=== PATIENT | female | born 1970 | race Caucasian/White ===

== ENCOUNTER → 2017-04-14 | Outpatient (CLI) | payer MEDICAID ==
--- NOTE | 2017-04-19 09:35 | MM ---
Reason for exam: screening (asymptomatic). Last mammogram was performed 4 years and 11 months ago. History: Patient had first child at age 43. Taking hormonal contraceptives for 3 years. Physical Findings: A clinical breast exam by your physician is recommended on an annual basis and results should be correlated with mammographic findings. MG 3D Screening Mammo W/Cad Bilateral CC, MLO, and XCCL view(s) were taken. Prior study comparison: May 16, 2012, mammogram, performed at [facility]. April 10, 2009, mammogram, performed at [facility]. There are scattered fibroglandular densities. There is no discrete abnormality. No significant changes when compared with prior studies. ASSESSMENT: Negative, BI-RAD 1 RECOMMENDATION: Routine screening mammogram of both breasts in 1 year.
== END | disposition home or self-care (01) ==
LOC: RADMAMWWP 11:00
PROVIDERS: ATTEND Obstetrics & Gynecology
DX: Z12.31 Encounter for screening mammogram for malignant neoplasm of breast (principal)
CPT/HCPCS: 77063; G0202

== ENCOUNTER → 2018-07-19 | Outpatient (CLI) | payer MEDICAID ==
--- NOTE | 2018-07-24 11:58 | MM ---
Reason for exam: screening (asymptomatic). Last mammogram was performed 1 year and 3 months ago. History: Patient had first child at age 43. Taking hormonal contraceptives for 3 years. Physical Findings: A clinical breast exam by your physician is recommended on an annual basis and results should be correlated with mammographic findings. MG 3D Screening Mammo W/Cad Bilateral CC and MLO view(s) were taken. Prior study comparison: April 14, 2017, bilateral MG 3d screening mammo w/cad. May 16, 2012, mammogram, performed at [facility]. There are scattered fibroglandular densities. No significant changes when compared with prior studies. ASSESSMENT: Benign, BI-RAD 2 RECOMMENDATION: Routine screening mammogram of both breasts in 1 year.
== END | disposition home or self-care (01) ==
LOC: RADMAMWWP 11:11
PROVIDERS: ATTEND Obstetrics & Gynecology
DX: Z12.31 Encounter for screening mammogram for malignant neoplasm of breast (principal)
CPT/HCPCS: 77063; 77067

== ENCOUNTER → 2018-08-14 | Outpatient (CLI) | payer MEDICAID ==
--- NOTE | 2018-08-14 09:39 | CT ---
EXAMINATION TYPE: CT sinus wo con DATE OF EXAM: 08/14/2018 COMPARISON: NONE HISTORY: Chronic hypertrophic rhinitis per order. Sinus symptoms per every including headaches and ch panfilo in vision per patient. CT DLP: 641.6 mGycm. Automated Exposure Control for Dose Reduction was Utilized. TECHNIQUE: CT scan of the sinuses is performed without contrast, axial images are obtained, coronal r eformatted images are also reviewed. FINDINGS: The paranasal sinuses including the frontal, ethmoid, sphenoid, and maxillary sinuses bila terally are well-aerated without abnormal opacification. The ostiomeatal complex is patent bilateral ly on the coronal images. Nasal septum is slightly deviated to right of midline. Visualized portion of mastoid air cells show no abnormal opacification. The globes are intact bilate rally. IMPRESSION: No significant acute or chronic paranasal sinus disease.
== END | disposition home or self-care (01) ==
LOC: RADCTMAIN 07:21
PROVIDERS: ATTEND Otolaryngology Sleep Medicine
DX: J31.0 Chronic rhinitis (principal)
CPT/HCPCS: 70486

== ENCOUNTER → 2019-06-06 | Outpatient (CLI) | payer MEDICAID ==
[2019-06-06 11:39] VITALS: BMI 47.5
== END | disposition home or self-care (01) ==
LOC: DBWHC3 10:02
PROVIDERS: ATTEND Family Medicine
DX: E66.9 Obesity, unspecified (principal); Z68.42 Body mass index [BMI] 45.0-49.9, adult
CPT/HCPCS: 97802

== ENCOUNTER 2020-04-03 12:28 | Observation (INO) | payer MEDICAID ==
--- NOTE | 2020-04-03 13:10 | ED ---
General Adult HPI - General Chief complaint: Chest Pain Stated complaint: Chest pressure Time Seen by Provider: 04/03/20 12:44 Source: patient, RN notes reviewed, old records reviewed Mode of arrival: wheelchair Limitations: no limitations - History of Present Illness Initial comments: 50-year-old female presenting for evaluation of chest pressure, tightness, and dyspnea. Symptoms have been present since yesterday evening. She states initially began as what she thought was indigestion, central burning chest pain. This progressed to a chest tightness. She states that it has not resolved. She denies associated vomiting or diaphoresis. She has no known history of coronary artery disease. She is a nonsmoker. Past medical history of anxiety a nd depression, no history of diabetes or hypertension. - Related Data Allergies Allergy/AdvReac Type Severity Reaction Status Date / Time No Known Allergies Allergy Verified 04/03/20 12:42 Review of Systems ROS Statement: Those systems with pertinent positive or pertinent negative responses have been documented in the HPI. ROS Other: All systems not noted in ROS Statement are negative. Past Medical History Past Medical History: No Reported History History of Any Multi-Drug Resistant Organisms: None Reported Past Surgical History: No Surgical Hx Reported Past Psychological History: Anxiety Smoking Status: Never smoker Past Alcohol Use History: None Reported Past Drug Use History: None Reported General Exam Limitations: no limitations General appearance: alert, in no apparent distress Head exam: Present: atraumatic, normocephalic Eye exam: Present: normal appearance, PERRL ENT exam: Present: normal exam Neck exam: Present: normal inspection. Absent: tenderness, meningismus Respiratory exam: Present: normal lung sounds bilaterally. Absent: respiratory distress, wheezes, rales Cardiovascular Exam: Present: regular rate, normal rhythm GI/Abdominal exam: Present: soft. Absent: distended, tenderness Extremities exam: Present: normal inspection, normal capillary refill. Absent: pedal edema, calf tenderness Neurological exam: Present: alert, oriented X3, CN II-XII intact. Absent: motor sensory deficit Psychiatric exam: Present: anxious Skin exam: Present: warm, dry, intact. Absent: cyanosis, diaphoretic Course Vital Signs 04/03/20 04/03/20 04/03/20 12:39 12:55 13:36 Temperature 98.2 F 98 F Pulse Rate 99 101 H Respiratory 20 18 18 Rate Blood Pressure 140/80 138/62 O2 Sat by Pulse 100 99 Oximetry EKG Findings - EKG Comments: EKG Findings:: EKG: Normal sinus rhythm, incomplete right bundle-branch block no ST segment elevation, rate of 96, NJ interval 148, QRS duration 110, QTC 469 Medical Decision Making - Medical Decision Making 50-year-old female presenting with chest pain. Patient has EKG which is sinus rhythm with no ST segment elevation, chest x-ray negative for focal pneumonia, no acute findings. Patient has a normal CBC, normal CMP, initial troponin is negative, d-dimer is negative. Patient will be kept in observation for serial cardiac enzymes, telemetry and cardiology consultation - Lab Data Result diagrams: 04/03/20 13:12 04/03/20 13:12 Lab Results 04/03/20 04/03/20 04/03/20 Range/Units 13:12 13:12 13:12 WBC 7.2 (3.8-10.6) k/uL RBC 5.10 (3.80-5.40) m/uL Hgb 14.1 (11.4-16.0) gm/dL Hct 43.4 (34.0-46.0) % MCV 85.1 (80.0-100.0) fL MCH 27.5 (25.0-35.0) pg MCHC 32.4 (31.0-37.0) g/dL RDW 12.9 (11.5-15.5) % Plt Count 327 (150-450) k/uL Neutrophils % 59 % Lymphocytes % 31 % Monocytes % 6 % Eosinophils % 2 % Basophils % 1 % Neutrophils # 4.2 (1.3-7.7) k/uL Lymphocytes # 2.2 (1.0-4.8) k/uL Monocytes # 0.4 (0-1.0) k/uL Eosinophils # 0.2 (0-0.7) k/uL Basophils # 0.0 (0-0.2) k/uL PT 9.7 (9.0-12.0) sec INR 0.9 (<1.2) APTT 25.2 (22.0-30.0) sec D-Dimer 0.27 (<0.60) mg/L FEU Sodium 139 (137-145) mmol/L Potassium 4.1 (3.5-5.1) mmol/L Chloride 105 (98-107) mmol/L Carbon Dioxide 25 (22-30) mmol/L Anion Gap 9 mmol/L BUN 12 (7-17) mg/dL Creatinine 0.66 (0.52-1.04) mg/dL Est GFR (CKD-EPI)AfAm >90 (>60 ml/min/1.73 sqM) Est GFR (CKD-EPI)NonAf >90 (>60 ml/min/1.73 sqM) Glucose 102 H (74-99) mg/dL Calcium 10.2 (8.4-10.2) mg/dL Magnesium 2.0 (1.6-2.3) mg/dL Total Bilirubin 0.4 (0.2-1.3) mg/dL AST 25 (14-36) U/L ALT 22 (4-34) U/L Alkaline Phosphatase 71 (38-126) U/L Troponin I (0.000-0.034) ng/mL NT-Pro-B Natriuret Pep pg/mL Total Protein 7.4 (6.3-8.2) g/dL Albumin 4.6 (3.5-5.0) g/dL 04/03/20 04/03/20 Range/Units 13:12 13:12 WBC (3.8-10.6) k/uL RBC (3.80-5.40) m/uL Hgb (11.4-16.0) gm/dL Hct (34.0-46.0) % MCV (80.0-100.0) fL MCH (25.0-35.0) pg MCHC (31.0-37.0) g/dL RDW (11.5-15.5) % Plt Count (150-450) k/uL Neutrophils % % Lymphocytes % % Monocytes % % Eosinophils % % Basophils % % Neutrophils # (1.3-7.7) k/uL Lymphocytes # (1.0-4.8) k/uL Monocytes # (0-1.0) k/uL Eosinophils # (0-0.7) k/uL Basophils # (0-0.2) k/uL PT (9.0-12.0) sec INR (<1.2) APTT (22.0-30.0) sec D-Dimer (<0.60) mg/L FEU Sodium (137-145) mmol/L Potassium (3.5-5.1) mmol/L Chloride (98-107) mmol/L Carbon Dioxide (22-30) mmol/L Anion Gap mmol/L BUN (7-17) mg/dL Creatinine (0.52-1.04) mg/dL Est GFR (CKD-EPI)AfAm (>60 ml/min/1.73 sqM) Est GFR (CKD-EPI)NonAf (>60 ml/min/1.73 sqM) Glucose (74-99) mg/dL Calcium (8.4-10.2) mg/dL Magnesium (1.6-2.3) mg/dL Total Bilirubin (0.2-1.3) mg/dL AST (14-36) U/L ALT (4-34) U/L Alkaline Phosphatase (38-126) U/L Troponin I <0.012 (0.000-0.034) ng/mL NT-Pro-B Natriuret Pep 17 pg/mL Total Protein (6.3-8.2) g/dL Albumin (3.5-5.0) g/dL Disposition Clinical Impression: Chest pain Disposition: ADMITTED IP TO THIS [facility] Condition: Stable Is patient prescribed a controlled substance at d/c from ED?: No Referrals: Charles Patterson DO [Primary Care Provider] - 1-2 days Decision to Admit Reason: Admit from EC Decision Date: 04/03/20 Decision Time: 14:18
--- NOTE | 2020-04-03 13:25 | XR ---
EXAMINATION TYPE: XR chest 2V DATE OF EXAM: 04/03/2020 COMPARISON: None TECHNIQUE: PA and lateral views submitted. HISTORY: Chest pain FINDINGS: The lungs are clear and there is no pneumothorax, pleural effusion, or focal pneumonia. Heart size normal. No overt failure. Biapical pleural thickening. Mild hypertrophic change of the spine. IMPRESSION: 1. No acute process.
[2020-04-03 13:28] LABS: Basophils % (A) 1 %; Eosinophils # (A) 0.2 k/uL (0-0.7); Eosinophils % (A) 2 %; HCT 43.4 % (34.0-46.0); HGB 14.1 gm/dL (11.4-16.0); Lymphocytes # (A) 2.2 k/uL (1.0-4.8); Lymphocytes % (A) 31 %; MCH 27.5 pg (25.0-35.0); MCHC 32.4 g/dL (31.0-37.0); MCV 85.1 fL (80.0-100.0); Mean Platelet Volume 7.1; Monocytes # (A) 0.4 k/uL (0-1.0); Monocytes % (A) 6 %; Neutrophils # (A) 4.2 k/uL (1.3-7.7); Neutrophils % (A) 59 %; Platelet Count 327 k/uL (150-450); RDW 12.9 % (11.5-15.5); WBC 7.2 k/uL (3.8-10.6)
[2020-04-03 13:32] LABS: ALT 22 U/L (4-34); AST 25 U/L (14-36); African American GFR (CKD) >90 (>60 ml/min/1.73 sqM); Albumin 4.6 g/dL (3.5-5.0); Alkaline Phosphatase 71 U/L (38-126); Anion Gap 9 mmol/L; Blood Urea Nitrogen 12 mg/dL (7-17); Calcium 10.2 mg/dL (8.4-10.2); Carbon Dioxide 25 mmol/L (22-30); Chloride 105 mmol/L (98-107); Glucose 102 mg/dL (74-99); Non-African American GFR(CKD) >90 (>60 ml/min/1.73 sqM); Potassium 4.1 mmol/L (3.5-5.1); Sodium 139 mmol/L (137-145); Total Bilirubin 0.4 mg/dL (0.2-1.3); Total Protein 7.4 g/dL (6.3-8.2)
[2020-04-03 13:42] LABS: D-Dimer 0.27 mg/L FEU (<0.60); INR 0.9 (<1.2); Partial Thromboplastin Time 25.2 sec (22.0-30.0); Prothrombin Time 9.7 sec (9.0-12.0)
[2020-04-03] MEDS ORDERED: ASPIRIN 325 MG TAB PO STA (13:59)
[2020-04-03] MEDS ORDERED: ACETAMINOPHEN TAB 325 MG TAB PO PRN (14:15)
[2020-04-03] MEDS ORDERED: NALOXONE 0.4 MG/ML 1 ML VIAL IV PRN (14:15)
[2020-04-03] MEDS ORDERED: HYDROmorphone 0.5 MG/0.5 ML SYRINGE IVP PRN (17:09)
[2020-04-03] MEDS ORDERED: TEMAZEPAM 15 MG CAP PO PRN (17:09)
[2020-04-03] MEDS ORDERED: clonazePAM 1 MG TAB PO PRN (17:15)
--- NOTE | 2020-04-03 17:47 | HP ---
HISTORY AND PHYSICAL DATE OF SERVICE: 04/03/2020 CHIEF COMPLAINT: Chest pain. HISTORY OF PRESENT ILLNESS: This is a 50-year-old woman with a past medical history of hypercholesteremia, history of distention, diabetes, history of sinus surgery, history of anxiety, depression, being followed by Dr. Charles Patterson in the outpatient setting, was yesterday last night, woke up from the sleep with initially some indigestion, subsequently some burning chest pain which was high up in the chest. The patient also had some chest tightness, which was not resolved and the patient came to [facility], admitted for further evaluation and treatment. There is no history of fever, chills, or rigors. No history of headache, loss of consciousness or seizures. PAST MEDICAL HISTORY: History of anxiety, depression, history of hypertriglyceridemia, history of chronic rhinitis, bilateral glaucoma. HOME MEDICATIONS: Prior to admission include: 1. Tylenol 500 mg q.6 p.r.n. 2. PreserVision. 3. Magnesium oxide 500 mg p.o. daily. 4. Vitamin D3 one thousand daily. 5. Vistaril 25 mg q.h.s. 6. Klonopin 1 mg daily p.r.n. 7. Effexor XR 75 mg q.h.s. 8. Elavil 12.5 mg q.h.s. 9. Abilify 5 mg. ALLERGIES: LATEX. FAMILY HISTORY: No history of heart disease or strokes in the family. SOCIAL HISTORY: No history of smoking, no alcohol intake. REVIEW OF SYSTEMS: ENT: No diminished vision. CARDIOVASCULAR: As mentioned earlier. RESPIRATORY: As mentioned earlier. GI: As mentioned earlier. : No dysuria. NERVOUS SYSTEM: No numbness or weakness. ALLERGY/IMMUNOLOGY: As mentioned earlier. MUSCULOSKELETAL: As mentioned earlier. HEMATOLOGY/ONCOLOGY: No history of anemia. ENDOCRINE: No history of diabetes or hypothyroidism. CONSTITUTIONAL: As mentioned earlier. DERMATOLOGY: Negative. PSYCHIATRY: As mentioned earlier. PHYSICAL EXAMINATION: Patient is alert, oriented x3. The pulse is 103, blood pressure 139/81, respirations 16, temperature 98.1, pulse ox 98% on room air. HEENT: Conjunctivae normal. NECK: No jugular venous distension. CARDIOVASCULAR SYSTEM: S1, S2, muffled. RESPIRATORY: Breath sounds diminished at the bases, no rhonchi, no crackles. ABDOMEN: Soft, obese, nontender. No mass palpable. LEGS: No edema, no swelling. NERVOUS SYSTEM: Higher functions as mentioned earlier. moves all 4 limbs, no focal motor or sensory deficits. LYMPHATICS: No lymph node enlargement in the neck or axillae. SKIN: No ulcer, rash. JOINTS: No active arthropathy. LABS: CBC within normal limits, glucose 102. ASSESSMENT: 1. Chest pain, possible unstable angina. Rule out myocardial infarction. 2. Possible gastroesophageal reflux disease. 3. History of mild hypertriglyceridemia. 4. History of chronic rhinitis. 5. History of bilateral glaucoma. 6. History of degenerative joint disease. 7. History of gestational diabetes. 8. Anxiety, depression. 9. Obesity with body mass index of 40.5. RECOMMENDATION: In this 50-year-old woman who presented with multiple medical problems, at this time, I recommend to continue current medications and symptomatic treatment. protocol. Rule out myocardial infarction. Cardiology consultation. N.p.o. past midnight. Possible stress test. Otherwise, I would also recommend resume the home medications, Klonopin p.r.n. Will follow the patient closely and a copy of this forwarded to Dr. Patterson who is the primary physician. MMODL / IJN: [id number] / MTDD
[2020-04-03 18:33] LABS: Appearance,Urine Clear (Clear); Bilirubin,Urine Negative (Negative); Blood,Urine Negative (Negative); Color,Urine Light Yellow; Glucose,Urine (UA) Negative (Negative); Ketones,Urine Negative (Negative); Leukocyte Esterase,Urine Negative (Negative); Nitrite,Urine Negative (Negative); PH, Urine 6.5 (5.0-8.0); Protein,Urine Negative (Negative); Specific Gravity,Urine 1.009 (1.001-1.035); Urobilinogen,Urine <2.0 mg/dL (<2.0)
[2020-04-03] MEDS: PANTOPRAZOLE 40 MG/10 ML VIAL IVP SCH ×2 (19:14→21:06)
[2020-04-03] MEDS: hydrOXYzine pamoate 25 MG CAP PO SCH (20:22)
[2020-04-03] MEDS: AMITRIPTYLINE HCL 25 MG TAB PO SCH (21:05)
[2020-04-03] MEDS: ARIPiprazole 5 MG TAB PO SCH (21:06)
[2020-04-03] MEDS: VENLAFAXINE HCL ER 75 MG CAP PO SCH (21:28)
[2020-04-04 06:52] LABS: Basophils # (A) 0.1 k/uL (0-0.2); Basophils % (A) 1 %; Eosinophils # (A) 0.2 k/uL (0-0.7); Eosinophils % (A) 3 %; HCT 43.1 % (34.0-46.0); HGB 13.8 gm/dL (11.4-16.0); Lymphocytes # (A) 2.3 k/uL (1.0-4.8); Lymphocytes % (A) 29 %; MCH 27.7 pg (25.0-35.0); MCV 86.5 fL (80.0-100.0); Mean Platelet Volume 7.1; Monocytes # (A) 0.5 k/uL (0-1.0); Monocytes % (A) 7 %; Neutrophils # (A) 4.7 k/uL (1.3-7.7); Neutrophils % (A) 59 %; Platelet Count 319 k/uL (150-450); RBC 4.98 m/uL (3.80-5.40); RDW 13.1 % (11.5-15.5)
[2020-04-04 07:02] LABS: African American GFR (CKD) >90 (>60 ml/min/1.73 sqM); Anion Gap 8 mmol/L; Blood Urea Nitrogen 13 mg/dL (7-17); Calcium 9.7 mg/dL (8.4-10.2); Carbon Dioxide 26 mmol/L (22-30); Chloride 104 mmol/L (98-107); Glucose 116 mg/dL (74-99); Non-African American GFR(CKD) >90 (>60 ml/min/1.73 sqM); Potassium 4.3 mmol/L (3.5-5.1); Sodium 138 mmol/L (137-145)
[2020-04-04] MEDS: PANTOPRAZOLE 40 MG/10 ML VIAL IVP SCH ×2 (08:41→19:47)
[2020-04-04] MEDS: CHOLECALCIFEROL 1,000 UNIT TAB PO SCH (08:41)
[2020-04-04] MEDS: VIT A,C & E-LUTEIN-MINERALS 1 EACH TAB PO SCH (08:42)
[2020-04-04] MEDS: MAGNESIUM OXIDE 400 MG TAB PO SCH (08:42)
--- NOTE | 2020-04-04 09:00 | US ---
EXAMINATION TYPE: US gallbladder DATE OF EXAM: 04/04/2020 COMPARISON: CT 2008 CLINICAL HISTORY: epigastric pain, right arm, nausea. RUQ pain, esophageal reflux per patient EXAM MEASUREMENTS: Liver Length: 20.0 cm Gallbladder Wall: 0.2 cm CBD: 0.6 cm Right Kidney: 13.3 x 6.1 x 4.1 cm Pancreas: hyperechoic and tail obscured by overlying bowel gas Liver: enlarged, fatty as is hyperechoic to right renal cortex Gallbladder: multiple, nonmobile and shadowing stones within Evidence for sonographic Clark's sign: yes CBD: size is within upper limits of normal Right Kidney: No hydronephrosis or masses seen Pancreas is suboptimally evaluated on images saved secondary to shadowing from overlying bowel gas. V isualized liver is heterogeneously hyperechoic with portions not well seen on images labeled secondar y to shadowing from ribs. Evaluation for focal masses suboptimal due to the heterogeneity. Gallbladde r shows multiple mobile shadowing gallstones. No pericholecystic fluid or abnormal gallbladder wall t hickening. Positive sonographic Clark's sign. Common bile duct measures upper limits of normal. IMPRESSION: Suboptimal study. Several intraluminal gallstones redemonstrated. No convincing significa nt or ultrasound evidence for acute cholecystitis. However in patient with right upper quadrant pain and positive sonographic Clark's sign it cannot be entirely excluded. Consider HIDA scan evaluation.
[2020-04-04 10:02] LABS: Cholesterol 204 mg/dL (<200); HDL Cholesterol 49 mg/dL (40-60); LDL Cholesterol,Calculated 109 mg/dL (0-99); Triglycerides 232 mg/dL (<150)
--- NOTE | 2020-04-04 10:25 | P.CRDCN ---
History of Present Illness History of present illness: HISTORY OF PRESENTING ILLNESS This is a pleasant 50-year-old male past medical history significant for anxiety and depression. 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 We have been asked to see in consultation for chest pain. She woke up in the middle of the night with a pain in the mid sternal region described as a burning sensation associated with nausea, a weird taste in her mouth and a full sensation in her chest. She took an antacid and her symptoms did not improve. She woke up again later in the night with similar symptoms and this time she felt very nauseated. She states she felt as though she was going to vomit if she felt. Her symptoms of chest pain and nausea have subsided. However she does have mild discomfort in the right upper quadrant DIAGNOSTICS EKG reveals sinus mechanism with right bundle branch block. Chest xray a for any acute cardiopulmonary process. Laboratory reviewed, BC unremarkable, d-dimer 0.27, sodium 138, potassium 4.3, creatinine 0.61, uric enzymes negative 3, and T proBNP 17, LDL 109, HDL 49, triglycerides 232 and total cholesterol 204. REVIEW OF SYSTEMS At the time of my exam: CONSTITUTIONAL: Denies fever or chills. CARDIOVASCULAR: Denies chest pain, shortness of breath, orthopnea, PND or palpitations. RESPIRATORY: Denies cough. GASTROINTESTINAL: Denies abdominal pain, diarrhea, constipation, nausea or vomiting. MUSCULOSKELETAL: Denies myalgias. NEUROLOGIC: Denies numbness, tingling or weakness. ENDOCRINE: Denies fatigue, weight change, polydipsia or polyurina. GENITOURINARY: Denies burning, hematuria or urgency with micturation. HEMATOLOGIC: Denies history of anemia or bleeding. PHYSICAL EXAMINATION Blood pressure 135/84 heart rate 67 afebrile and maintaining oxygen saturation on air. CONSTITUTIONAL: No apparent distress. Obese. HEENT: Head is normocephalic. Pupils are equal, round. Sclerae anicteric. Mucous membranes of the mouth are moist. No JVD. No carotid bruit. CHEST EXAMINATION: Lungs are clear to auscultation. No chest wall tenderness is noted on palpation or with deep breathing. HEART EXAMINATION: Regular rate and rhythm. S1, S2 heard. No murmurs, gallops or rub. ABDOMEN: Soft, mild discomfort of the right upper quadrant not acutely tender. Positive bowel sounds. EXTREMITIES: 2+ peripheral pulses, no lower extremity edema and no calf tenderness. NEUROLOGIC EXAMINATION: Patient is awake, alert and oriented x3. ASSESSMENT Chest pain, atypical for angina. Morbid obesity, BMI 48 PLAN An acute coronary event has been ruled out. Symptoms are atypical for angina and appear to have more of a GI etiology. We have requested an ultrasound of the gallbladder reveals multiple gallstones with no acute cholecystitis. Given her ongoing mild abdominal discomfort and seek surgical evaluation and recommend stress testing as an outpatient. Check lipid panel and hemoglobin A1c. Follow- up in the office with Dr. Virgen in 3 weeks. Thank you kindly for this consultation. Nurse Practitioner note has been reviewed, I agree with a documented findings and plan of care. Patient was seen and examined. 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 History of Any Multi-Drug Resistant Organisms: None Reported Past Surgical History: No Surgical Hx Reported Additional Past Surgical History / Comment(s): Sinus surgery, D&Cs d/t polyps, laparoscopy for endometriosis, bilateral laser eye surgery for glaucoma. Past Anesthesia/Blood Transfusion Reactions: No Reported Reaction, Motion Sickness Smoking Status: Never smoker - Past Family History Father History Unknown: Yes Additional Family Medical History / Comment(s): Pt does not know father's medical history-she just knows he is still alive. Mother Family Medical History: No Reported History Additional Family Medical History / Comment(s): Mother is alive and healthy Medications and Allergies Home Medications Medication Instructions Recorded Confirmed Type ARIPiprazole [Abilify] 5 mg PO HS 04/03/20 04/03/20 History Acetaminophen Tab [Tylenol Tab] 500 mg PO Q6H PRN 04/03/20 04/03/20 History Amitriptyline HCl [Elavil] 12.5 mg PO HS 04/03/20 04/03/20 History Cholecalciferol [Vitamin D3 (25 1,000 unit PO DAILY 04/03/20 04/03/20 History Mcg = 1000 Iu)] Magnesium Oxide [Fish] 500 mg PO DAILY 04/03/20 04/03/20 History Venlafaxine HCl [Effexor XR] 75 mg PO HS 04/03/20 04/03/20 History Vit C/E/Zn/Coppr/Lutein/Zeaxan 1 cap PO DAILY 04/03/20 04/03/20 History [Preservision Areds 2 Softgel] clonazePAM [KlonoPIN] 1 mg PO DAILY PRN 04/03/20 04/03/20 History hydrOXYzine pamoate [Vistaril] 25 mg PO HS 04/03/20 04/03/20 History Allergies Allergy/AdvReac Type Severity Reaction Status Date / Time LATEX POWDER Allergy Unknown Uncoded 04/03/20 14:20 Physical Exam Vitals: Vital Signs Temp Pulse Pulse Resp BP BP Pulse Ox 04/04/20 07:41 98 F 67 16 135/84 100 04/04/20 03:00 98.1 F 100 18 128/76 97 04/03/20 21:00 97.8 F 101 H 18 136/81 96 04/03/20 15:00 103 H 18 04/03/20 14:38 97.9 F 101 H 18 138/69 98 04/03/20 14:05 98.0 F 103 H 16 139/81 96 04/03/20 13:36 98 F 101 H 18 138/62 99 04/03/20 12:55 18 04/03/20 12:39 98.2 F 99 20 140/80 100 Intake and Output 04/03/20 04/04/20 04/04/20 22:59 06:59 14:59 Intake Total 690 0 Balance 690 0 Intake: Oral 690 0 Other: Voiding Method Toilet Toilet # Voids 1 2 Results 04/04/20 06:28 04/04/20 06:28 Cardiac Enzymes 04/03/20 04/03/20 04/03/20 Range/Units 13:12 13:12 15:20 AST 25 (14-36) U/L Troponin I <0.012 <0.012 (0.000-0.034) ng/mL 04/03/20 Range/Units 19:08 AST (14-36) U/L Troponin I <0.012 (0.000-0.034) ng/mL Coagulation 04/03/20 Range/Units 13:12 PT 9.7 (9.0-12.0) sec APTT 25.2 (22.0-30.0) sec CBC 04/03/20 04/04/20 Range/Units 13:12 06:28 WBC 7.2 8.0 (3.8-10.6) k/uL RBC 5.10 4.98 (3.80-5.40) m/uL Hgb 14.1 13.8 (11.4-16.0) gm/dL Hct 43.4 43.1 (34.0-46.0) % Plt Count 327 319 (150-450) k/uL Comprehensive Metabolic Panel 04/03/20 04/04/20 Range/Units 13:12 06:28 Sodium 139 138 (137-145) mmol/L Potassium 4.1 4.3 (3.5-5.1) mmol/L Chloride 105 104 (98-107) mmol/L Carbon Dioxide 25 26 (22-30) mmol/L BUN 12 13 (7-17) mg/dL Creatinine 0.66 0.61 (0.52-1.04) mg/dL Glucose 102 H 116 H (74-99) mg/dL Calcium 10.2 9.7 (8.4-10.2) mg/dL AST 25 (14-36) U/L ALT 22 (4-34) U/L Alkaline Phosphatase 71 (38-126) U/L Total Protein 7.4 (6.3-8.2) g/dL Albumin 4.6 (3.5-5.0) g/dL Current Medications Generic Name Dose Route Start Last Admin Trade Name Freq PRN Reason Stop Dose Admin Acetaminophen 650 mg 04/03/20 14:15 Tylenol Tab PO Q6HR PRN Mild Pain or Fever > 100.5 Amitriptyline HCl 12.5 mg 04/03/20 21:00 04/03/20 21:05 Elavil PO 12.5 mg HS WHITNEY Administration Aripiprazole 5 mg 04/03/20 21:00 04/03/20 21:06 Abilify PO 5 mg HS WHITNEY Administration Cholecalciferol 1,000 unit 04/04/20 09:00 04/04/20 08:41 Vitamin D3 (25 Mcg = 1000 Iu) PO 1,000 unit DAILY WHITNEY Administration Clonazepam 1 mg 04/03/20 17:15 04/03/20 18:36 Klonopin PO 1 mg TID PRN Administration Anxiety Hydromorphone HCl 0.5 mg 04/03/20 17:09 04/03/20 18:29 Dilaudid IVP 0.5 mg Q6HR PRN Administration Severe Pain Hydroxyzine Pamoate 25 mg 04/03/20 21:00 04/03/20 20:22 Vistaril PO 25 mg HS WHITNEY Administration Magnesium Oxide 400 mg 04/04/20 09:00 04/04/20 08:42 Mag-Ox PO 400 mg DAILY WHITNEY Administration Multivitamins/Minerals 1 each 04/04/20 09:00 04/04/20 08:42 Ivite PO 1 each DAILY WHITNEY Administration Naloxone HCl 0.2 mg 04/03/20 14:15 Narcan IV Q2M PRN Opioid Reversal Pantoprazole Sodium 40 mg 04/03/20 17:09 04/04/20 08:41 Protonix IVP 40 mg BID WHITNEY Administration Temazepam 15 mg 04/03/20 17:09 Restoril PO HS PRN Insomnia Venlafaxine HCl 75 mg 04/03/20 21:00 04/03/20 21:28 Effexor Xr PO 75 mg HS WHITNEY Administration Intake and Output 04/03/20 04/04/20 04/04/20 22:59 06:59 14:59 Intake Total 690 0 Balance 690 0 Intake: Oral 690 0 Other: Voiding Method Toilet Toilet # Voids 1 2 04/04/20 06:28 04/04/20 06:28
--- NOTE | 2020-04-04 14:12 | P.GSCN ---
History of Present Illness Consult date: 04/04/20 History of present illness: CHIEF COMPLAINT: heartburn and upper chest wall pain HISTORY OF PRESENT ILLNESS: this is a 50-year-old female with a known history of hyperlipidemia, anxiety and depression. she presented to the emergency room with complaints of pain in the midsternal area and right upper shoulder it was a burning in sensation. she also reports some right upper quadrant pain with nausea. she took an antacid with no improvement in symptoms. She came into ER for further evaluation and treatment. She was seen by cardiology and acute coronary syndrome was ruled out. Her LFTs were normal. Abdominal ultrasound did reveal gallstones. Surgical consult was placed for further evaluation. PAST MEDICAL HISTORY: See list. PAST SURGICAL HISTORY: See list. MEDICATIONS: See list. ALLERGIES: See list. SOCIAL HISTORY: No illicit drug use. REVIEW OF SYSTEMS: CONSTITUTIONAL: Denies fever or chills. HEENT: Denies blurred vision, vision changes, or eye pain. Denies hemoptysis CARDIOVASCULAR: Denies chest pain or pressure. RESPIRATORY: No shortness of breath. GASTROINTESTINAL: See HPI for pertinent findings HEMATOLOGIC: Denies bleeding disorders. GENITOURINARY: Denies any blood in urine or increased urinary frequency. SKIN: Denies pruitis. Denies rash. PHYSICAL EXAM: VITAL SIGNS: Reviewed GENERAL: Well-developed in no acute distress. HEENT: No sclera icterus. Extraocular movements grossly intact. Moist buccal mucosa. Head is atraumatic, normocephalic. No nasal drainage. ABDOMEN: Soft. Obese. Nondistended. Tenderness with palpation to right upper quadrant NEUROLOGIC: Alert and oriented. Cranial nerves II through XII grossly intact. LABORATORY DATA: liver enzymes normal WBC 8 IMAGING: abdominal ultrasound suboptimal study. Several intraluminal gallstones redemonstrated. No convincing significant evidence of acute cholecystitis. ASSESSMENT: 1. Right upper quadrant abdominal pain with nausea and abdominal ultrasound revealing several intraluminal gallstones.Liver enzymes are normal PLAN: 1. Agree with obtaining HIDA scan 2. Dr. Aguiar will review HIDA scan results and will discuss further surgical intervention if required Physician Window Caser note has been reviewed by physician. Signing provider agrees with the documented findings, assessment, and plan of care. 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 History of Any Multi-Drug Resistant Organisms: None Reported Past Surgical History: No Surgical Hx Reported Additional Past Surgical History / Comment(s): Sinus surgery, D&Cs d/t polyps, laparoscopy for endometriosis, bilateral laser eye surgery for glaucoma. Past Anesthesia/Blood Transfusion Reactions: No Reported Reaction, Motion Sickness Smoking Status: Never smoker - Past Family History Father History Unknown: Yes Additional Family Medical History / Comment(s): Pt does not know father's medical history-she just knows he is still alive. Mother Family Medical History: No Reported History Additional Family Medical History / Comment(s): Mother is alive and healthy Medications and Allergies Home Medications Medication Instructions Recorded Confirmed Type ARIPiprazole [Abilify] 5 mg PO HS 04/03/20 04/03/20 History Acetaminophen Tab [Tylenol Tab] 500 mg PO Q6H PRN 04/03/20 04/03/20 History Amitriptyline HCl [Elavil] 12.5 mg PO HS 04/03/20 04/03/20 History Cholecalciferol [Vitamin D3 (25 1,000 unit PO DAILY 04/03/20 04/03/20 History Mcg = 1000 Iu)] Magnesium Oxide [Fish] 500 mg PO DAILY 04/03/20 04/03/20 History Venlafaxine HCl [Effexor XR] 75 mg PO HS 04/03/20 04/03/20 History Vit C/E/Zn/Coppr/Lutein/Zeaxan 1 cap PO DAILY 04/03/20 04/03/20 History [Preservision Areds 2 Softgel] clonazePAM [KlonoPIN] 1 mg PO DAILY PRN 04/03/20 04/03/20 History hydrOXYzine pamoate [Vistaril] 25 mg PO HS 04/03/20 04/03/20 History Allergies Allergy/AdvReac Type Severity Reaction Status Date / Time LATEX POWDER Allergy Unknown Uncoded 04/03/20 14:20 Surgical - Exam Vital Signs Temp Pulse Resp BP Pulse Ox 98.2 F 99 20 140/80 100 04/03/20 12:39 04/03/20 12:39 04/03/20 12:39 04/03/20 12:39 04/03/20 12:39 Results - Labs 04/04/20 06:28 04/04/20 06:28 Abnormal Lab Results - Last 24 Hours (Table) 04/04/20 04/04/20 Range/Units 06:28 06:28 Glucose 116 H (74-99) mg/dL Triglycerides 232 H (<150) mg/dL Cholesterol 204 H (<200) mg/dL LDL Cholesterol, Calc 109 H (0-99) mg/dL Diabetes panel 04/04/20 04/04/20 Range/Units 06:28 06:28 Sodium 138 (137-145) mmol/L Potassium 4.3 (3.5-5.1) mmol/L Chloride 104 (98-107) mmol/L Carbon Dioxide 26 (22-30) mmol/L BUN 13 (7-17) mg/dL Creatinine 0.61 (0.52-1.04) mg/dL Glucose 116 H (74-99) mg/dL Calcium 9.7 (8.4-10.2) mg/dL Triglycerides 232 H (<150) mg/dL HDL Cholesterol 49 (40-60) mg/dL Calcium panel 04/04/20 Range/Units 06:28 Calcium 9.7 (8.4-10.2) mg/dL Pituitary panel 04/04/20 Range/Units 06:28 Sodium 138 (137-145) mmol/L Potassium 4.3 (3.5-5.1) mmol/L Chloride 104 (98-107) mmol/L Carbon Dioxide 26 (22-30) mmol/L BUN 13 (7-17) mg/dL Creatinine 0.61 (0.52-1.04) mg/dL Glucose 116 H (74-99) mg/dL Calcium 9.7 (8.4-10.2) mg/dL Adrenal panel 04/04/20 Range/Units 06:28 Sodium 138 (137-145) mmol/L Potassium 4.3 (3.5-5.1) mmol/L Chloride 104 (98-107) mmol/L Carbon Dioxide 26 (22-30) mmol/L BUN 13 (7-17) mg/dL Creatinine 0.61 (0.52-1.04) mg/dL Glucose 116 H (74-99) mg/dL Calcium 9.7 (8.4-10.2) mg/dL
--- NOTE | 2020-04-04 15:37 | NM ---
EXAMINATION TYPE: NM hepatobiliary w CCK DATE OF EXAM: 04/04/2020 COMPARISON: Same day gallbladder ultrasound HISTORY: Epigastric and right upper quadrant pain with nausea TECHNIQUE: After the intravenous administration of 4.39 mCi Tc 99m Mebrofenin hepatobiliary scintigra phy is performed. Immediate images post injection. FINDINGS: There is satisfactory initial accumulation of tracer by the liver. The gallbladder is visualized wit hin 25 minutes. The small bowel activity is then well seen even after 60 minutes. At one hour CCK w as administered, patient was injected with 2.4 mcg of Kinevac, and gallbladder ejection fraction is c alculated at 12 %, diminished from the normal range. Therefore there is no scintigraphic evidence of cystic or common bile duct obstruction to suggest acute cholecystitis . IMPRESSION: Gallbladder ejection fraction is maximum 12%, diminished from the normal range, scintigra phic findings are consistent with underlying gallbladder dyskinesia.
[2020-04-04] MEDS ORDERED: MAG HYDROX/AL HYDROX/SIMETH 30 ML CUP PO PRN (16:26)
--- NOTE | 2020-04-04 16:27 | PN ---
PROGRESS NOTE DATE OF SERVICE: 04/04/2020 This is a 50-year-old woman with a past medical history admitted with chest pain and abdominal pain. The HIDA scan is pending at this time. Gallbladder ultrasound showed possible multiple cholelithiasis. Acute cholecystitis cannot be completely ruled out. No chest pain. No palpitations. No fever. PHYSICAL EXAM: Alert and oriented x3. Pulse 67, blood pressure 130/84, respirations 16, temperature 98 degrees, pulse ox 100% on room air. HEENT: Conjunctivae normal. NECK: No jugular venous distension. CARDIOVASCULAR SYSTEM: S1, S2, muffled. RESPIRATORY SYSTEM: Breath sounds diminished at the bases, no rhonchi, no crackles. ABDOMEN: Soft, mild diffuse discomfort. No guarding. No rigidity. No mass palpable. LEGS: No edema, no swelling. NERVOUS SYSTEM: Higher functions as mentioned earlier, moves all 4 limbs, no focal motor or sensory deficits. LYMPHATICS: No lymph node enlargement in the neck or axillae. SKIN: No ulcers, rash. JOINTS: No active deforming arthropathy. LABS: CBC noted, otherwise cholesterol 232, 204, LDL is 109. ASSESSMENT: 1. Chest pain, possible unstable angina. Myocardial infarction ruled out. 2. Abdominal discomfort, possible cholelithiasis, rule out cholecystitis. 3. Possible gastroesophageal reflux disease. 4. Mild hypertriglyceridemia. 5. Hyperlipidemia. 6. Chronic rhinitis. 7. History of bilateral glaucoma. 8. History of DJD. 9. History of gestational diabetes. 10.Anxiety, depression. 11.Obesity with a body mass index of 40.5. RECOMMENDATION: I recommend to continue current medications, continue to monitor, symptomatic treatment. Otherwise at this time I recommend a small dose of Lipitor. Surgical evaluation, possible cholecystectomy. Otherwise, follow up with Cardiology. Stress test possibly as an outpatient to rule out possible coronary artery disease. Prognosis guarded. Further recommendations to follow. MMODL / IJN: [id number] / MTDD
[2020-04-04] MEDS ORDERED: PANTOPRAZOLE 40 MG TABLET PO SCH (17:30)
[2020-04-04 17:39] LABS: Hemoglobin A1C 5.6 % (4.0-6.0)
[2020-04-04] MEDS: AMITRIPTYLINE HCL 25 MG TAB PO SCH (19:46)
[2020-04-04] MEDS: hydrOXYzine pamoate 25 MG CAP PO SCH (19:46)
[2020-04-04] MEDS: VENLAFAXINE HCL ER 75 MG CAP PO SCH (19:46)
[2020-04-04] MEDS: ARIPiprazole 5 MG TAB PO SCH (19:46)
[2020-04-04] MEDS ORDERED: ATORVASTATIN 10 MG TAB PO SCH (21:00)
[2020-04-04] MEDS ORDERED: ATORVASTATIN 40 MG TAB PO SCH (21:00)
[2020-04-05 08:30] VITALS: BP 148/89; PULSE 95; RESP 16; TEMP 97.8
[2020-04-05] MEDS: PANTOPRAZOLE 40 MG/10 ML VIAL IVP SCH (08:33)
--- NOTE | 2020-04-05 10:48 | P.PN ---
Subjective Progress Note Date: 04/05/20 Principal diagnosis: Cholecystitis Patient doing well today. HIDA scan showed no cystic duct occlusion. EF 12%. Patient says her symptoms have resolved. Complains more of heartburn and chest pain. Would like to go home today. Objective - Vital Signs Vital signs: Vital Signs Temp 97.8 F 04/05/20 08:26 Pulse 95 04/05/20 08:26 Resp 16 04/05/20 08:26 BP 148/89 04/05/20 08:26 Pulse Ox 96 04/05/20 08:26 Intake & Output 04/04/20 04/05/20 04/05/20 18:59 06:59 18:59 Intake Total 1040 900 Balance 1040 900 Intake: Oral 1040 900 Other: Voiding Method Toilet Toilet # Voids 2 1 - Exam Abdomen: Soft, nontender, nondistended - Labs CBC & Chem 7: 04/04/20 06:28 04/04/20 06:28 Assessment and Plan (1) Chest pain Narrative/Plan: Patient doing well at this time. Possible chronic cholecystitis. Patient will see Dr. Aguiar in the office to discuss upper endoscopy versus cholecystectomy. Current Visit: Yes Status: Acute Code(s): R07.9 - CHEST PAIN, UNSPECIFIED SNOMED Code(s): 16286867
[2020-04-05] MEDS: MAGNESIUM OXIDE 400 MG TAB PO SCH (10:51)
[2020-04-05] MEDS: CHOLECALCIFEROL 1,000 UNIT TAB PO SCH (10:51)
[2020-04-05] MEDS: VIT A,C & E-LUTEIN-MINERALS 1 EACH TAB PO SCH (10:52)
--- NOTE | 2020-04-05 13:11 | P.DS ---
Providers Date of admission: 04/03/20 14:15 Expected date of discharge: 04/05/20 Attending physician: Troy Mckeon Consults: 04/03/20 14:16 Consult Physician Routine Consulting Provider: Dangelo Richardson Consult Reason/Comments: CP Do you want consulting provider notified?: Yes 04/04/20 10:54 Consult Physician Routine Consulting Provider: Joseph Aguiar Consult Reason/Comments: heart burn/ pain Do you want consulting provider notified?: Yes Primary care physician: Charles Patterson [facility] Hospital Course: Ms. Black is a 50-year-old female with a past medical history of hyper-raquel sterolemia, diabetes mellitus, anxiety, depression, who is a patient of Dr. Charles Patterson in an outpatient setting, coming in with chest pain. Patient had workup done with serial troponins and EKGs that were within normal limits. Cardiology consultation was obtained, and it appeared more of a GI etiology. So patient had an ultrasound of the gallbladder showing multiple gallstones with no acute cholecystitis. Then eventually patient had a HIDA scan-showing maximum ejection fraction of 12% which is diminished from the normal range. So surgical consult was obtained. They suggested outpatient follow-up. Patient was started on a PPI to which she responded. This morning when I examined the patient says she does not have any symptoms. Denies having any chest discomfort. Rest of the review of systems has been negative. Vital Signs - 8 hr 04/05/20 08:26 Temperature 97.8 F Pulse Rate [ 95 Pulse Oximetery ] Respiratory 16 Rate Blood Pressure 148/89 [Left Arm] O2 Sat by Pulse 96 Oximetry GENERAL EXAM GEN. APPEARANCE: alert, in no apparent distress HEENT : No pallor. No icterus. PERRLA. RESPIRATORY EXAM: Bilateral breath sounds are positive. No wheezes or crackles. CARDIOVASCULAR EXAM: S1-S2 heard. No additional sounds. GI/ABDOMINAL EXAM: Abdomen is soft, nontender. Normal bowel sounds. No guarding or rigidity. EXTREMITIES EXAM: No edema DISCHARGE DIAGNOSIS Atypical chest pain Acute coronary syndrome ruled out Abdominal discomfort- probable gallbladder etiology GERD Dyslipidemia Chronic rhinitis DJD History of gestational diabetes Anxiety with depression Obesity with BMI of 40.5 PLAN: Patient has been cleared by cardiology and surgical services. She is advised to have follow-up appointment with cardiology for possible outpatient stress test. She was also advised to follow with surgery as outpatient for possible cholecystectomy. Patient has dyslipidemia, discussed with her about starting her on a statin. Patient states that she would wait for her primary care physician to decide upon it. So the patient is being discharged home in a stable condition with appropriate follow-up. More than 35 minutes spent towards the discharge of the patient. CC to Dr. Charles Pena Patient Condition at Discharge: Stable Plan - Discharge Summary Discharge Rx Participant: No New Discharge Prescriptions: New Pantoprazole Sodium [Protonix] 40 mg PO DAILY #30 tablet. Continue Acetaminophen Tab [Tylenol] 500 mg PO Q6H PRN PRN Reason: Pain Vit C/E/Zn/Coppr/Lutein/Zeaxan [Preservision Areds 2 Softgel] 1 cap PO DAILY Magnesium Oxide [Fish] 500 mg PO DAILY Cholecalciferol [Vitamin D3 (25 Mcg = 1000 Iu)] 1,000 unit PO DAILY hydrOXYzine pamoate [Vistaril] 25 mg PO HS clonazePAM [KlonoPIN] 1 mg PO DAILY PRN PRN Reason: Anxiety Venlafaxine HCl [Effexor XR] 75 mg PO HS Amitriptyline HCl [Elavil] 12.5 mg PO HS ARIPiprazole [Abilify] 5 mg PO HS Discharge Medication List ARIPiprazole [Abilify] 5 mg PO HS 04/03/20 [History] Acetaminophen Tab [Tylenol] 500 mg PO Q6H PRN 04/03/20 [History] Amitriptyline HCl [Elavil] 12.5 mg PO HS 04/03/20 [History] Cholecalciferol [Vitamin D3 (25 Mcg = 1000 Iu)] 1,000 unit PO DAILY 04/03/20 [History] Magnesium Oxide [Fish] 500 mg PO DAILY 04/03/20 [History] Venlafaxine HCl [Effexor XR] 75 mg PO HS 04/03/20 [History] Vit C/E/Zn/Coppr/Lutein/Zeaxan [Preservision Areds 2 Softgel] 1 cap PO DAILY 04/03/20 [History] clonazePAM [KlonoPIN] 1 mg PO DAILY PRN 04/03/20 [History] hydrOXYzine pamoate [Vistaril] 25 mg PO HS 04/03/20 [History] Pantoprazole Sodium [Protonix] 40 mg PO DAILY #30 tablet. 04/05/20 [Rx] Follow up Appointment(s)/Referral(s): Mark Garcia MD [STAFF PHYSICIAN] - 3 Weeks Charles Patterson DO [Primary Care Provider] - 1-2 days Joseph Aguiar MD [STAFF PHYSICIAN] - 1 Week Patient Instructions/Handouts: Chest Pain (DC), Gallstones (DC), HIDA Scan (GEN), Gastroesophageal Reflux Disease (DC) Discharge Disposition: HOME SELF-CARE
== END 2020-04-05 13:00 | disposition home or self-care (01) ==
LOC: EC 12:28 → 3NCARDOBS 14:15
PROVIDERS: ADMIT Hospitalist; ATTEND Hospitalist
DX: R07.89 Other chest pain (principal); K80.20 Calculus of gallbladder without cholecystitis without obstruction; K21.9 Gastro-esophageal reflux disease without esophagitis; F41.8 Other specified anxiety disorders; R10.11 Right upper quadrant pain; R93.2 Abnormal findings on diagnostic imaging of liver and biliary tract; M25.511 Pain in right shoulder; R11.0 Nausea; I45.10 Unspecified right bundle-branch block; E78.00 Pure hypercholesterolemia, unspecified; K30 Functional dyspepsia; J31.0 Chronic rhinitis; H40.9 Unspecified glaucoma; E78.1 Pure hyperglyceridemia; M47.9 Spondylosis, unspecified; E78.5 Hyperlipidemia, unspecified; M19.90 Unspecified osteoarthritis, unspecified site; E66.01 Morbid (severe) obesity due to excess calories; Z68.42 Body mass index [BMI] 45.0-49.9, adult; Z87.440 Personal history of urinary (tract) infections; Z91.040 Latex allergy status; Z87.59 Personal history of other complications of pregnancy, childbirth and the puerperium; Z86.32 Personal history of gestational diabetes
CPT/HCPCS: 93005 ×2; 96374; 96375; 96376 ×2; 99285; 36415; 85379; 83880; 80061; 80053; 80048; 83735; 84484; 85025 ×2; 85610; 85730; 81003; 83036; 71046; 76705; 78227; G0378 ×3; A9537; J2805; C9113 ×3; J1170

== ENCOUNTER 2020-04-22 06:50 | Day surgery (SDC) | payer MEDICAID ==
[2020-04-16 12:12] VITALS: BMI 47.5
[~2020-04-22 06:50] MED LIST: ACETAMINOPHEN TAB 500 MG TAB PO ONE; DEXAMETHASONE SOD PHOSPHATE 10 MG/ML 1 ML VIAL IV ONE; HEPARIN SODIUM,PORCINE 5,000 UNIT/ML 1 ML VIAL SQ ONE; LACTATED RINGERS 1,000 ML IV SCH; LIDOCAINE 1% (10MG/ML) FOR IV START INTRADERMA PRN; MIDAZOLAM 2 MG/2 ML VIAL IV PRN; ONDANSETRON 4 MG/2 ML VIAL IVP ONE; fentaNYL (PF) 50 MCG/ML 2 ML AMP IV PRN
[2020-04-22 07:15] VITALS: TEMP 98.5
[2020-04-22] MEDS ORDERED: ACETAMINOPHEN TAB 500 MG TAB ONE (07:21)
[2020-04-22] MEDS ORDERED: ONDANSETRON 4 MG/2 ML VIAL ONE (07:21)
[2020-04-22] MEDS ORDERED: HEPARIN SODIUM,PORCINE 5,000 UNIT/ML 1 ML VIAL ONE (07:21)
[2020-04-22] MEDS ORDERED: BUPIVACAINE (PF) 0.25% 30 ML VIAL SQ ONE (07:34)
[2020-04-22] MEDS ORDERED: LIDOCAINE 1% INJ 10MG/ML (20 ML MDV) ONE (07:48)
[2020-04-22] MEDS ORDERED: PROPOFOL 10 MG/ML 20 ML VIAL IV ONE (07:48)
[2020-04-22] MEDS ORDERED: KETOROLAC 30 MG/ML 1 ML VIAL ONE (07:48)
[2020-04-22] MEDS ORDERED: ROCURONIUM 10 MG/ML (5 ML VIAL) IV ONE (07:48)
[2020-04-22] MEDS ORDERED: MIDAZOLAM 2 MG/2 ML VIAL ONE (07:48)
[2020-04-22] MEDS ORDERED: GLYCOPYRROLATE 0.2 MG/ML 2 ML VIAL ONE (07:48)
[2020-04-22] MEDS ORDERED: SUCCINYLCHOLINE CHLORIDE VIAL 200 MG/10 ML VIAL IV ONE (07:48)
[2020-04-22] MEDS ORDERED: fentaNYL (PF) 50 MCG/ML 2 ML AMP ONE (07:48)
[2020-04-22] MEDS ORDERED: NEOSTIGMINE 1 MG/ML 10 ML VIAL ONE (07:48)
--- NOTE | 2020-04-22 08:47 | P.GSHP ---
History of Present Illness H&P Date: 04/22/20 Chief Complaint: Right upper quadrant pain This is a 50-year-old female who presents today for laparoscopic cholecystectomy. Patient is recommended to report pain. Found have cholelithiasis. Past Medical History Past Medical History: Sleep Apnea/CPAP/BIPAP Additional Past Medical History / Comment(s): environmental allergies, glaucoma, arthritis in back/bilateral legs, gestational diabetes/pre-eclampsia/htn resolved with of child., has IUD, uses C-Pap machine. History of Any Multi-Drug Resistant Organisms: None Reported Past Surgical History: Section Additional Past Surgical History / Comment(s): Sinus surgery, D&Cs d/t polyps, laparoscopy for endometriosis, laser eye surgery for glaucoma., Oral surgery. Past Anesthesia/Blood Transfusion Reactions: No Reported Reaction Additional Past Anesthesia/Blood Transfusion Reaction / Comment(s): claustrophobic Past Psychological History: Anxiety, Depression Additional Psychological History / Comment(s): . Smoking Status: Never smoker Past Alcohol Use History: Occasional Past Drug Use History: None Reported - Past Family History Father History Unknown: Yes Family Medical History: No Reported History Additional Family Medical History / Comment(s): . Mother Family Medical History: No Reported History Additional Family Medical History / Comment(s): . Medications and Allergies Home Medications Medication Instructions Recorded Confirmed Type ARIPiprazole [Abilify] 5 mg PO HS 04/03/20 04/22/20 History Amitriptyline HCl [Elavil] 12.5 mg PO HS 04/03/20 04/22/20 History Cholecalciferol [Vitamin D3 (25 1,000 unit PO DAILY 04/03/20 04/22/20 History Mcg = 1000 Iu)] Magnesium Oxide [Fish] 500 mg PO DAILY 04/03/20 04/22/20 History Venlafaxine HCl [Effexor XR] 75 mg PO HS 04/03/20 04/22/20 History Vit C/E/Zn/Coppr/Lutein/Zeaxan 1 cap PO DAILY 04/03/20 04/22/20 History [Preservision Areds 2 Softgel] clonazePAM [KlonoPIN] 1 mg PO DAILY PRN 04/03/20 04/22/20 History hydrOXYzine pamoate [Vistaril] 25 mg PO HS 04/03/20 04/22/20 History Acetaminophen [Tylenol Arthritis] 1,300 mg PO HS PRN 04/16/20 04/22/20 History Allergies Allergy/AdvReac Type Severity Reaction Status Date / Time pantoprazole [From Protonix] AdvReac Unknown Headache, Verified 04/22/20 07:12 Muscles felt sore LATEX POWDER Allergy ITCHY EYES Uncoded 04/22/20 07:12 Surgical - Exam Vital Signs Temp Pulse Resp BP Pulse Ox 98.5 F 102 H 16 145/69 95 04/22/20 07:10 04/22/20 07:10 04/22/20 07:10 04/22/20 07:10 04/22/20 07:10 - General well developed, well nourished, no distress - Eyes PERRL - ENT normal pinna - Neck no masses - Respiratory normal expansion - Cardiovascular Rhythm: regular - Abdomen Abdomen: soft, tender (Mild right quadrant pain) Assessment and Plan Assessment: Cholelithiasis Close cholecystitis We'll perform laparoscopic cholecystectomy
--- NOTE | 2020-04-22 08:48 | P.OP ---
Date of Procedure: 04/22/20 Preoperative Diagnosis: Cholecystitis Postoperative Diagnosis: Cholecystitis Cholelithiasis Procedure(s) Performed: Laparoscopic cholecystectomy Anesthesia: AMENA Surgeon: Joseph Aguiar Estimated Blood Loss (ml): 5 Pathology: other (Gallbladder) Condition: stable Disposition: PACU Description of Procedure: The patient was placed on the operating table. The patient received a general endotracheal tube anesthesia. The patients abdomen was prepped and draped in the usual sterile fashion. Through an infraumbilical stab incision, the fascia of the anterior abdominal wall was grasped with a pair of Kochers and then the Veress needle was placed in the peritoneal cavity. Position of the Veress needle was confirmed with positive drop test. The abdomen was then insufflated. After adequate insufflation, the 10 mm trocar was placed in the peritoneal cavity. Following this the laparoscope was placed in the peritoneal cavity. The patient was placed in the head-up, right side up position and then a 5 mm trocar was placed in the right lateral and right subcostal position under direct visualization. A 8 mm trocar was placed in the epigastric position. The gallbladder was grasped in the fundus and infundibulum. Traction on the gallbladder was placed in the lateral and the cephalad positions. The triangle of Calot was visualized.. The cystic duct was bluntly dissected until the union of the cystic duct and common bile duct was seen. A critical view of safety was achieved. The cystic duct was then divided and sealed with the Harmonic scissors. A PDS Endoloop was then placed throughout the cystic duct stump. The cystic artery divided and sealed with the Harmonic scissors. The gallbladder was then removed from the liver bed using Harmonic scissors. The gallbladder was then extracted through the epigastric port site. Operative field was checked for any bleeding spots and Harmonic scissors was used to coagulate the liver bed. The abdomen was irrigated. The trocars were removed. The skin was closed using interrupted 3-0 Vicryl suture. Dermabond dressing were applied. The patient tolerated the procedure well.
[2020-04-22] MEDS: HYDROmorphone 0.5 MG/0.5 ML SYRINGE IVP PRN ×2 (09:22→09:28)
[2020-04-22] MEDS ORDERED: SODIUM CHLORIDE 0.9% 1,000 ML IV ONE (09:36)
[2020-04-22 09:48] VITALS: RESP 16
[2020-04-22] MEDS ORDERED: HYDROcodone/APAP 5-325MG 1 EACH TAB ONE (09:55)
[2020-04-22] MEDS ORDERED: HYDROcodone/APAP 5-325MG 1 EACH TAB PO ONE (09:57)
[2020-04-22 10:54] VITALS: BP 99/58; PULSE 90
== END 2020-04-22 11:55 | disposition home or self-care (01) ==
LOC: OR 06:50
PROVIDERS: ATTEND Surgery
DX: K80.10 Calculus of gallbladder with chronic cholecystitis without obstruction (principal); G47.30 Sleep apnea, unspecified; F40.240 Claustrophobia; F41.9 Anxiety disorder, unspecified; F32.9 Major depressive disorder, single episode, unspecified; H40.9 Unspecified glaucoma; M19.90 Unspecified osteoarthritis, unspecified site; J30.2 Other seasonal allergic rhinitis; Z91.040 Latex allergy status; Z88.8 Allergy status to other drugs, medicaments and biological substances; Z79.891 Long term (current) use of opiate analgesic; Z79.899 Other long term (current) drug therapy; Z99.89 Dependence on other enabling machines and devices; Z86.32 Personal history of gestational diabetes; Z98.891 History of uterine scar from previous surgery; Z98.890 Other specified postprocedural states
CPT/HCPCS: 81025; 88304; 47562; J2250; J0330; J1644; J1100; J2710; J0690; J2405; J2001; J3010; J1885; J2704; J1170

== ENCOUNTER → 2020-05-02 | Outpatient (CLI) | payer MEDICAID ==
--- NOTE | 2020-05-02 16:37 | CT ---
EXAMINATION TYPE: CT angio chest DATE OF EXAM: 05/02/2020 COMPARISON: None HISTORY: Chest pain and dyspnea post cholecystectomy. CT DLP: 1411 mGycm Automated exposure control for dose reduction was used. CONTRAST: Performed with IV Contrast, patient injected with 100ml mL of Isovue 370. There are 3-D post processed images. The lungs are clear of infiltrate. There is no evidence of a pulmonary mass. There is no pleural effu junior. Heart size is normal. There is no pericardial effusion. There is no mediastinal adenopathy. The re are no hilar masses. Bony thorax is intact. The ribs appear intact. Upper abdominal soft tissues a re intact. There is normal contrast opacification of the pulmonary arteries. There are no filling defects. Thora cic aorta appears normal. There is no aneurysm or dissection. IMPRESSION: Negative exam. No evidence of pulmonary embolism.
== END | disposition home or self-care (01) ==
LOC: RADCTMAIN 15:53
PROVIDERS: ATTEND Physician Assistant Medical
DX: R07.9 Chest pain, unspecified (principal); R06.00 Dyspnea, unspecified
CPT/HCPCS: 71275; Q9967

== ENCOUNTER → 2020-05-23 | Outpatient (CLI) | payer MEDICAID ==
--- NOTE | 2020-05-26 10:38 | MM ---
Reason for exam: screening (asymptomatic). Last mammogram was performed 1 year and 10 months ago. History: Patient had first child at age 43. Taking hormonal contraceptives for 3 years. Physical Findings: A clinical breast exam by your physician is recommended on an annual basis and results should be correlated with mammographic findings. MG 3D Screening Mammo W/Cad Bilateral CC and MLO view(s) were taken. Prior study comparison: July 19, 2018, bilateral MG 3d screening mammo w/cad. April 14, 2017, bilateral MG 3d screening mammo w/cad. The breast tissue is heterogeneously dense. This may lower the sensitivity of mammography. There is no discrete abnormality. Benign bilateral axillary lymph nodes redemonstrated. ASSESSMENT: Benign, BI-RAD 2 RECOMMENDATION: Routine screening mammogram of both breasts in 1 year.
== END | disposition home or self-care (01) ==
LOC: RADMAMWWP 08:23
PROVIDERS: ATTEND Obstetrics & Gynecology
DX: Z12.31 Encounter for screening mammogram for malignant neoplasm of breast (principal)
CPT/HCPCS: 77063; 77067

== ENCOUNTER → 2021-05-27 | Outpatient (CLI) | payer MEDICAID ==
[2021-05-28 14:07] LABS: Estradiol 72.1 pg/mL; Follicle Stimulating Hormone 5.9 mIU/mL; Testosterone 4.21 ng/mL (9.01-47.94)
== END | disposition home or self-care (01) ==
LOC: LABWHC1 12:59
PROVIDERS: ATTEND Obstetrics & Gynecology
DX: F41.8 Other specified anxiety disorders (principal); R53.83 Other fatigue
CPT/HCPCS: 36415; 82670; 83001; 84144; 84402; 84403

== ENCOUNTER → 2021-06-09 | Outpatient (CLI) | payer MEDICAID ==
--- NOTE | 2021-06-10 12:00 | MM ---
Reason for exam: screening (asymptomatic). Last mammogram was performed 1 year and 1 month ago. History: Patient had first child at age 43. Taking hormonal contraceptives beginning at age 44. Physical Findings: A clinical breast exam by your physician is recommended on an annual basis and results should be correlated with mammographic findings. MG 3D Screening Mammo W/Cad Bilateral CC, MLO, and XCCL view(s) were taken. CV view(s) were taken of the left breast. Prior study comparison: May 23, 2020, bilateral MG 3d screening mammo w/cad. July 19, 2018, bilateral MG 3d screening mammo w/cad. April 14, 2017, bilateral MG 3d screening mammo w/cad. There are scattered fibroglandular densities. Finding: There is an intermediate concern, suspicious 8 mm equal density (isodense) mass located 12 cm from the nipple in the 3 o'clock position of the right breast. New finding since May 23, 2020, July 19, 2018, and April 14, 2017. ASSESSMENT: Incomplete: need additional imaging evaluation, BI-RAD 0 RECOMMENDATION: Ultrasound of the right breast. [facility] will attempt to contact patient to return for ultrasound.
== END | disposition home or self-care (01) ==
LOC: RADMAMWWP 08:06
PROVIDERS: ATTEND Obstetrics & Gynecology
DX: Z12.31 Encounter for screening mammogram for malignant neoplasm of breast (principal)
CPT/HCPCS: 77063; 77067

== ENCOUNTER → 2021-06-18 | Outpatient (CLI) | payer MEDICAID ==
--- NOTE | 2021-06-18 11:22 | USB ---
Reason for exam: additional evaluation requested from abnormal screening. History: Patient had first child at age 43. Taking hormonal contraceptives beginning at age 44. Physical Findings: Nurse Summary: healing abscess right breast (nurse ayanna). US Breast Workup Limited RT Right limited breast ultrasound including focal area of concern, retroareolar and axilla demonstrates a 1.1 x 1.1 x 0.4cm mixed, vascular, superficial lesion within dermis at 3 o'clock, compatible with the patient's inflamed cutaneous lesion. These results were verbally communicated with the patient and result sheet given to the patient on 06/18/21. ASSESSMENT: Incomplete: need additional imaging evaluation, BI-RAD 0 RECOMMENDATION: Special view mammogram of the right breast.
--- NOTE | 2021-06-18 11:24 | MM ---
Reason for exam: additional evaluation requested from abnormal screening. Last mammogram was performed less than 1 month ago. History: Patient had first child at age 43. Taking hormonal contraceptives beginning at age 44. MG 3D Work Up W/Cad RT Spot compression MLO, LM, and CCRM view(s) were taken of the right breast. Prior study comparison: July 19, 2018, bilateral MG 3d screening mammo w/cad. April 14, 2017, bilateral MG 3d screening mammo w/cad. There are scattered fibroglandular densities. The lateral asymmetric density disperses on additional views. The medial 7mm nodule is stable for 1 year. Additional 1 year follow up recommended. These results were verbally communicated with the patient and result sheet given to the patient on 06/18/21. ASSESSMENT: Probably benign, BI-RAD 3 RECOMMENDATION: Follow-up diagnostic mammogram of both breasts in 1 year.
== END | disposition home or self-care (01) ==
LOC: RADUSWWP 09:39
PROVIDERS: ATTEND Obstetrics & Gynecology
DX: N64.89 Other specified disorders of breast (principal); N63.10 Unspecified lump in the right breast, unspecified quadrant
CPT/HCPCS: 77061; 77065

== ENCOUNTER → 2021-07-18 | Outpatient (CLI) | payer MEDICAID | END | disposition home or self-care (01) | LOC: LABWHC1 11:38 | PROVIDERS: ATTEND Obstetrics & Gynecology | DX: E34.50 Androgen insensitivity syndrome, unspecified (principal); F41.8 Other specified anxiety disorders | CPT/HCPCS: 36415; 82040; 84270; 84403 ==

== ENCOUNTER 2023-03-09 08:56 | Day surgery (SDC) | payer MEDICAID ==
[2023-03-04 15:57] VITALS: BMI 50.3
--- NOTE | 2023-03-09 08:03 | P.GSHP ---
History of Present Illness H&P Date: 03/09/23 CHIEF COMPLAINT: Colon screen HISTORY OF PRESENT ILLNESS: The patient is a 53-year-old female who presents for colon screen. Lower endoscopy was offered for further evaluation and management. PAST MEDICAL HISTORY: Please see list. PAST SURGICAL HISTORY: Please see list. MEDICATIONS: Please see list. ALLERGIES: Please see list. SOCIAL HISTORY: No illicit drug use FAMILY HISTORY: No reports of Crohn disease or ulcerative colitis. REVIEW OF ORGAN SYSTEMS: CONSTITUTIONAL: No reports of fevers or chills. PHYSICAL EXAM: VITAL SIGNS: Stable GENERAL: Well-developed pleasant in no acute distress. HEENT: No scleral icterus. Extraocular movements grossly intact. Moist buccal mucosa. NECK: Supple without lymphadenopathy. CHEST: Unlabored respirations. Equal bilateral excursions. CARDIOVASCULAR: Regular rate and rhythm. Distal 2+ pulses. ABDOMEN: Soft, nontender, nondistended. MUSCULOSKELETAL: No clubbing, cyanosis, or edema. ASSESSMENT: 1. Colon screen. PLAN: 1. Recommend proceeding with a lower endoscopy Past Medical History Past Medical History: GERD/Reflux, Hyperlipidemia, Hypertension, Sleep Apnea/CPAP/BIPAP, Thyroid Disorder Additional Past Medical History / Comment(s): environmental allergies, glaucoma, arthritis in back/bilateral legs, gestational diabetes/pre-eclampsia/htn resolved with of child., has IUD , uses C-Pap machine. takes testosterone pellet every 3-4 months History of Any Multi-Drug Resistant Organisms: None Reported Past Surgical History: Section, Cholecystectomy Additional Past Surgical History / Comment(s): Sinus surgery, D&Cs d/t polyps, laparoscopy for endometriosis, laser eye surgery for glaucoma., Oral surgery. fibroid in uterus Past Anesthesia/Blood Transfusion Reactions: No Reported Reaction Additional Past Anesthesia/Blood Transfusion Reaction / Comment(s): claustrophobic no blood transfusion Smoking Status: Never smoker - Past Family History Father History Unknown: Yes Family Medical History: No Reported History Additional Family Medical History / Comment(s): . Mother Family Medical History: No Reported History Additional Family Medical History / Comment(s): . Medications and Allergies Home Medications Medication Instructions Recorded Confirmed Type Amitriptyline HCl [Elavil] 12.5 mg PO HS 04/03/20 03/04/23 History Cholecalciferol [Vitamin D3 (25 1,000 unit PO DAILY 04/03/20 03/04/23 History Mcg = 1000 Iu)] Magnesium Oxide [Fish] 500 mg PO DAILY 04/03/20 03/04/23 History Vit C/E/Zn/Coppr/Lutein/Zeaxan 1 cap PO DAILY 04/03/20 03/04/23 History [Preservision Areds 2 Softgel] clonazePAM [KlonoPIN] 1 mg PO DAILY PRN 04/03/20 03/04/23 History hydrOXYzine pamoate [Vistaril] 25 mg PO HS 04/03/20 03/04/23 History Fish Oil/Dha/Epa [Fish Oil 1,200 1 tab PO DAILY 03/04/23 03/04/23 History mg Fish Oil] Latanoprost [Latanoprost 0.005%] 1 drop BOTH EYES DAILY 03/04/23 03/04/23 History Multivit with Calcium,Iron,Min 1 each PO DAILY 03/04/23 03/04/23 History [Women's Multivitamin] Omeprazole [PriLOSEC] 10 mg PO DAILY 03/04/23 03/04/23 History Testosterone Pellet 1 unit SQ Q30D 03/04/23 History Thyroid,Pork [Silver Cleaner Thyroid] 60 mg PO DAILY 03/04/23 03/04/23 History Topiramate [Topamax] 50 mg PO BID 03/04/23 03/04/23 History Vortioxetine Hydrobromide 10 mg PO DAILY 03/04/23 03/04/23 History [Trintellix] lisinopriL [Zestril] 15 mg PO HS 03/04/23 03/04/23 History Allergies Allergy/AdvReac Type Severity Reaction Status Date / Time pantoprazole [From Protonix] AdvReac Unknown Headache, Verified 04/22/20 07:12 Muscles felt sore LATEX POWDER Allergy ITCHY EYES Uncoded 04/22/20 07:12
[~2023-03-09 08:56] MED LIST changes: -ACETAMINOPHEN TAB 500 MG TAB PO ONE; -DEXAMETHASONE SOD PHOSPHATE 10 MG/ML 1 ML VIAL IV ONE; -HEPARIN SODIUM,PORCINE 5,000 UNIT/ML 1 ML VIAL SQ ONE; -MIDAZOLAM 2 MG/2 ML VIAL IV PRN; -ONDANSETRON 4 MG/2 ML VIAL IVP ONE; -fentaNYL (PF) 50 MCG/ML 2 ML AMP IV PRN
[2023-03-09 09:28] VITALS: RESP 18; TEMP 98.9
--- NOTE | 2023-03-09 09:49 | P.HPADDEND ---
H&P Addendum H&P Addendum Date: 03/09/23 Patient also reports GI bleed with gastric ulcers. Upper endoscopy described.
[2023-03-09] MEDS ORDERED: LIDOCAINE 2% INJ 20 MG/ML (2 ML VIAL) ONE (09:53)
[2023-03-09] MEDS ORDERED: PROPOFOL 10 MG/ML 20 ML VIAL IV ONE (09:53)
--- NOTE | 2023-03-09 10:08 | P.PCN ---
Date of Procedure: 03/09/23 Description of Procedure: PREOPERATIVE DIAGNOSIS: Gastrointestinal bleeding Gastroesophageal reflux disease. Morbid obesity. POSTOPERATIVE DIAGNOSIS: Gastroesophageal reflux disease. Morbid obesity. Gastritis, chronic Gastric ulcers, chronic Diaphragmatic hiatal hernia OPERATION: Esophagogastroduodenoscopy with biopsies along antrum and duodenum SURGEON: Latanya Marcos MD ANESTHESIA: MAC. INDICATIONS: The patient is a 53-year-old female who presents with reflux disease. Benefits and risks of the procedure were described. Informed consent was obtained. DESCRIPTION: The patient was brought into the endoscopy suite and laid in the left lateral decubitus position. An Olympus gastroscope was passed along the posterior oropharynx down to the distal esophagus where the squamocolumnar junction was encountered at 35 cm from the incisors. The stomach was entered and no bile reflux was found. Additional findings are listed below. Biopsies with cold forceps were obtained of the antrum. The first through third portion of the duodenum was examined. Retroflexion of the scope confirmed Hill grade 2 lower esophageal valve. The squamocolumnar junction demonstrated LA grade B erosive esophagitis. The stomach was desufflated. The patient tolerated the procedure well. FINDINGS: Squamocolumnar junction 35 cm from the incisors. Diaphragmatic hiatus at 36 cm. Hiatal hernia, 1 cm Hill grade 2 lower esophageal valve. LA grade B erosive esophagitis. Biopsies obtained of the duodenum. Chronic gastritis and ulcers with biopsies obtained. RECOMMENDATIONS: Upper endoscopy as needed. Omeprazole 40 mg daily Discontinue NSAIDs
--- NOTE | 2023-03-09 10:19 | P.PCN ---
Date of Procedure: 03/09/23 Description of Procedure: PREOPERATIVE DIAGNOSIS: Colonoscopy screening. POSTOPERATIVE DIAGNOSIS: Colonoscopy screening. Severe sigmoid diverticulosis Pandiverticulosis Internal and external hemorrhoids, grade 4 OPERATION: Colonoscopy to the cecum, ileocecal valve and appendiceal orifice. SURGEON: Latanya Marcos MD. ANESTHESIA: MAC. INDICATIONS: The patient is a 53-year-old female who presents for colonoscopy screening. Benefits and risks were described and informed consent was obtained. DESCRIPTION OF PROCEDURE: The patient had undergone Sutab prep. The patient had been brought into the operating room and laid in the left lateral decubitus position. After adequate intravenous sedation, the rectum was examined with 2% lidocaine jelly. External hemorrhoids were encountered. The rectal tone was within normal limits. No lesions were palpated in the rectal vault. An Olympus colonoscope was advanced until the cecum, ileocecal valve and appendiceal orifice were clearly viewed. The prep was excellent. Severe rodriguez diverticulosis was encountered. No colonic polyps were found. No evidence of focal colitis was found. Retroflexion of the scope demonstrated grade 4 internal hemorrhoids without active bleeding or inflammation. The colon was desufflated. The patient had tolerated the procedure well. Withdrawal time was over 6 minutes. FINDINGS: Aronchick preparation quality scale 1+ (1-5) Internal hemorrhoids, grade 4 External prolapsed hemorrhoids, grade 4 No arteriovenous malformations. No adenomatous polyps. No focal colitis. Severe pandiverticulosis RECOMMENDATIONS: Lower endoscopy 10 years, 2032 Plan - Discharge Summary Discharge Rx Participant: No New Discharge Prescriptions: Continue Vit C/E/Zn/Coppr/Lutein/Zeaxan [Preservision Areds 2 Softgel] 1 cap PO DAILY Magnesium Oxide [Fish] 500 mg PO DAILY Cholecalciferol [Vitamin D3 (25 Mcg = 1000 Iu)] 1,000 unit PO DAILY hydrOXYzine pamoate [Vistaril] 25 mg PO HS clonazePAM [KlonoPIN] 1 mg PO DAILY PRN PRN Reason: Anxiety Amitriptyline HCl [Elavil] 12.5 mg PO HS Vortioxetine Hydrobromide [Trintellix] 10 mg PO DAILY Topiramate [Topamax] 50 mg PO BID Thyroid,Pork [Personal Lines Account Executive Thyroid] 60 mg PO DAILY Fish Oil/Dha/Epa [Fish Oil 1,200 mg Fish Oil] 1 tab PO DAILY Latanoprost [Latanoprost 0.005%] 1 drop BOTH EYES DAILY Testosterone Pellet 1 unit SQ Q30D lisinopriL [Zestril] 15 mg PO HS Multivit with Calcium,Iron,Min [Women's Multivitamin] 1 each PO DAILY Discontinued Omeprazole [PriLOSEC] 10 mg PO DAILY Discharge Medication List Amitriptyline HCl [Elavil] 12.5 mg PO HS 04/03/20 [History] Cholecalciferol [Vitamin D3 (25 Mcg = 1000 Iu)] 1,000 unit PO DAILY 04/03/20 [History] Magnesium Oxide [Fish] 500 mg PO DAILY 04/03/20 [History] Vit C/E/Zn/Coppr/Lutein/Zeaxan [Preservision Areds 2 Softgel] 1 cap PO DAILY 04/03/20 [History] clonazePAM [KlonoPIN] 1 mg PO DAILY PRN 04/03/20 [History] hydrOXYzine pamoate [Vistaril] 25 mg PO HS 04/03/20 [History] Fish Oil/Dha/Epa [Fish Oil 1,200 mg Fish Oil] 1 tab PO DAILY 03/04/23 [History] Latanoprost [Latanoprost 0.005%] 1 drop BOTH EYES DAILY 03/04/23 [History] Multivit with Calcium,Iron,Min [Women's Multivitamin] 1 each PO DAILY 03/04/23 [History] Testosterone Pellet 1 unit SQ Q30D 03/04/23 [History] Thyroid,Pork [Personal Lines Account Executive Thyroid] 60 mg PO DAILY 03/04/23 [History] Topiramate [Topamax] 50 mg PO BID 03/04/23 [History] Vortioxetine Hydrobromide [Trintellix] 10 mg PO DAILY 03/04/23 [History] lisinopriL [Zestril] 15 mg PO HS 03/04/23 [History] Follow up Appointment(s)/Referral(s): Latanya Marcos MD [STAFF PHYSICIAN] - 04/19/23 1:15 pm Patient Instructions/Handouts: Diverticulosis Diet (GEN), Diverticulosis (ED) Activity/Diet/Wound Care/Special Instructions: Repeat colonoscopy 10 years2032 Discharge Disposition: HOME SELF-CARE
[2023-03-09 10:42] VITALS: BP 130/79; PULSE 78
== END 2023-03-09 10:59 | disposition home or self-care (01) ==
LOC: ORWHC2ENDO 08:56
PROVIDERS: ATTEND Surgery Plastic and Reconstructive Surgery
DX: Z12.11 Encounter for screening for malignant neoplasm of colon (principal); K29.50 Unspecified chronic gastritis without bleeding; K21.00 Gastro-esophageal reflux disease with esophagitis, without bleeding; K31.7 Polyp of stomach and duodenum; K25.4 Chronic or unspecified gastric ulcer with hemorrhage; E66.01 Morbid (severe) obesity due to excess calories; K44.9 Diaphragmatic hernia without obstruction or gangrene; K57.30 Diverticulosis of large intestine without perforation or abscess without bleeding; K64.3 Fourth degree hemorrhoids; K64.8 Other hemorrhoids; E78.5 Hyperlipidemia, unspecified; Z68.1 Body mass index [BMI] 19.9 or less, adult; I10 Essential (primary) hypertension; G47.33 Obstructive sleep apnea (adult) (pediatric); Z87.59 Personal history of other complications of pregnancy, childbirth and the puerperium; Z90.49 Acquired absence of other specified parts of digestive tract; Z79.890 Hormone replacement therapy; Z79.899 Other long term (current) drug therapy
CPT/HCPCS: 81025; 88305; 88342; 45378; 43239; J2704; J2001

== ENCOUNTER 2023-06-08 07:08 | Day surgery (SDC) | payer MEDICAID ==
[2023-06-01 14:55] VITALS: BMI 50.3
[2023-06-08 07:35] VITALS: TEMP 97.9
[2023-06-08] MEDS ORDERED: PROPOFOL 10 MG/ML 20 ML VIAL IV ONE (07:38)
[2023-06-08] MEDS ORDERED: LIDOCAINE 2% (PF) 20 MG/ML 5 ML VIAL ONE (07:38)
--- NOTE | 2023-06-08 07:45 | P.GSHP ---
History of Present Illness H&P Date: 06/08/23 CHIEF COMPLAINT: GERD HISTORY OF PRESENT ILLNESS: The patient is a 53-year-old female who presents reports gastroesophageal reflux disease including intractable abdominal pain with H. pylori gastritis. Upper endoscopy was offered for further evaluation and management. PAST MEDICAL HISTORY: Please see list. PAST SURGICAL HISTORY: Please see list. MEDICATIONS: Please see list. ALLERGIES: Please see list. SOCIAL HISTORY: No illicit drug use FAMILY HISTORY: No reports of Crohn disease or ulcerative colitis. REVIEW OF ORGAN SYSTEMS: CONSTITUTIONAL: No reports of fevers or chills. GI: Denies any blood in stools or constipation. PHYSICAL EXAM: VITAL SIGNS: Stable GENERAL: Well-developed and pleasant in no acute distress. HEENT: No scleral icterus. Extraocular movements grossly intact. Moist buccal mucosa. NECK: Supple without lymphadenopathy. CHEST: Unlabored respirations. Equal bilateral excursions. CARDIOVASCULAR: Regular rate and rhythm. Distal 2+ pulses. ABDOMEN: Soft, nondistended. MUSCULOSKELETAL: No clubbing, cyanosis, or edema. ASSESSMENT: 1. Gastroesophageal reflux disease 2. H. pylori gastritis PLAN: 1. Recommend proceeding with an upper endoscopy Past Medical History Past Medical History: Eye Disorder, GERD/Reflux, Hyperlipidemia, Hypertension, Sleep Apnea/CPAP/BIPAP, Thyroid Disorder Additional Past Medical History / Comment(s): environmental allergies, glaucoma, arthritis in back/bilateral legs, gestational diabetes/pre-eclampsia/htn resolved with of child., has IUD , uses C-Pap machine. takes testosterone pellet every 3-4 months, STOMACH ULCERS History of Any Multi-Drug Resistant Organisms: None Reported Past Surgical History: Section, Cholecystectomy Additional Past Surgical History / Comment(s): Sinus surgery, D&Cs d/t polyps, laparoscopy for endometriosis, laser eye surgery for glaucoma., Oral surgery. fibroid in uterus, COLONOSCOPY Past Anesthesia/Blood Transfusion Reactions: No Reported Reaction Additional Past Anesthesia/Blood Transfusion Reaction / Comment(s): claustrophobic. no blood transfusion Smoking Status: Never smoker - Past Family History Father History Unknown: Yes Family Medical History: No Reported History Additional Family Medical History / Comment(s): . Mother Family Medical History: No Reported History Additional Family Medical History / Comment(s): . Medications and Allergies Home Medications Medication Instructions Recorded Confirmed Type Cholecalciferol [Vitamin D3 (25 1,000 unit PO DAILY 04/03/20 06/08/23 History Mcg = 1000 Iu)] Magnesium Oxide [Fish] 500 mg PO DAILY 04/03/20 06/08/23 History Vit C/E/Zn/Coppr/Lutein/Zeaxan 1 cap PO DAILY 04/03/20 06/08/23 History [Preservision Areds 2 Softgel] clonazePAM [KlonoPIN] 1 mg PO DAILY PRN 04/03/20 06/08/23 History hydrOXYzine pamoate [Vistaril] 25 mg PO HS 04/03/20 06/08/23 History Fish Oil/Dha/Epa [Fish Oil 1,200 1 tab PO DAILY 03/04/23 06/08/23 History mg Fish Oil] Latanoprost [Latanoprost 0.005%] 1 drop BOTH EYES DAILY 03/04/23 06/08/23 History Multivit with Calcium,Iron,Min 1 each PO HS 03/04/23 06/08/23 History [Women's Multivitamin] Testosterone Pellet 1 unit SQ DIRECTED 03/04/23 06/08/23 History Thyroid,Pork [[place]iln Drawer Thyroid] 60 mg PO DAILY 03/04/23 06/08/23 History Topiramate [Topamax] 50 mg PO BID 03/04/23 06/08/23 History Vortioxetine Hydrobromide 10 mg PO DAILY 03/04/23 06/08/23 History [Trintellix] lisinopriL [Zestril] 5 mg PO HS 03/04/23 06/08/23 History Amitriptyline HCl [Elavil] 10 mg PO HS 06/01/23 06/08/23 History Butalb/Acetaminophen/Caffeine 1 - 2 cap PO Q4HR PRN 06/01/23 06/08/23 History [Fioricet 50-300-40 mg Capsule] Liletta-Iud 1 insert VAGINAL DIRECTED 06/01/23 06/08/23 History lisinopriL [Zestril] 10 mg PO HS 06/01/23 06/08/23 History Allergies Allergy/AdvReac Type Severity Reaction Status Date / Time pantoprazole [From Protonix] AdvReac Unknown Headache, Verified 06/08/23 07:23 Muscles felt sore LATEX POWDER Allergy ITCHY EYES Uncoded 06/08/23 07:23 Surgical - Exam Vital Signs Temp Pulse BP Pulse Ox 97.9 F 115 H 149/89 98 06/08/23 07:20 06/08/23 07:20 06/08/23 07:20 06/08/23 07:20
[2023-06-08 08:24] VITALS: BP 119/78; PULSE 86; RESP 16
--- NOTE | 2023-06-08 08:28 | P.OP ---
Date of Procedure: 06/08/23 Description of Procedure: PREOPERATIVE DIAGNOSIS: Gastroesophageal reflux disease. H. pylori gastritis Morbid obesity. POSTOPERATIVE DIAGNOSIS: Gastroesophageal reflux History of H. pylori gastritis Morbid obesity. Gastritis. Diaphragmatic hiatal hernia OPERATION: Esophagogastroduodenoscopy with biopsies along the esophagus, antrum and duodenum SURGEON: Latanya Marcos MD ANESTHESIA: MAC. INDICATIONS: The patient is a 53-year-old female who presents with H. pylori gastritis and reflux disease. Benefits and risks of the procedure were described. Informed consent was obtained. DESCRIPTION: The patient was brought into the endoscopy suite and laid in the left lateral decubitus position. An Olympus gastroscope was passed along the posterior oropharynx down to the distal esophagus where the squamocolumnar junction was encountered at 35 cm from the incisors. The stomach was entered and no bile reflux was found. Additional findings are listed below. Biopsies with cold forceps were obtained of the antrum. The first through third portion of the duodenum was examined. Retroflexion of the scope confirmed Hill grade 2 lower esophageal valve. The squamocolumnar junction demonstrated LA grade A erosive esophagitis. The stomach was desufflated. The patient tolerated the procedure well. FINDINGS: Squamocolumnar junction 35 cm from the incisors. Diaphragmatic hiatus at 36 cm. Hiatal hernia, 1 cm Hill grade 2 lower esophageal valve. LA grade A erosive esophagitis. Biopsies obtained of the duodenum and esophagus Chronic gastritis with biopsies obtained. RECOMMENDATIONS: Upper endoscopy as needed. Plan - Discharge Summary Discharge Rx Participant: No New Discharge Prescriptions: Continue Vit C/E/Zn/Coppr/Lutein/Zeaxan [Preservision Areds 2 Softgel] 1 cap PO DAILY Magnesium Oxide [Fish] 500 mg PO DAILY Cholecalciferol [Vitamin D3 (25 Mcg = 1000 Iu)] 1,000 unit PO DAILY hydrOXYzine pamoate [Vistaril] 25 mg PO HS clonazePAM [KlonoPIN] 1 mg PO DAILY PRN PRN Reason: Anxiety Vortioxetine Hydrobromide [Trintellix] 10 mg PO DAILY Topiramate [Topamax] 50 mg PO BID Thyroid,Pork [Camp Guard Thyroid] 60 mg PO DAILY Fish Oil/Dha/Epa [Fish Oil 1,200 mg Fish Oil] 1 tab PO DAILY Latanoprost [Latanoprost 0.005%] 1 drop BOTH EYES DAILY Testosterone Pellet 1 unit SQ DIRECTED lisinopriL [Zestril] 10 mg PO HS Liletta-Iud 1 insert VAGINAL DIRECTED lisinopriL [Zestril] 5 mg PO HS Multivit with Calcium,Iron,Min [Women's Multivitamin] 1 each PO HS Butalb/Acetaminophen/Caffeine [Fioricet 50-300-40 mg Capsule] 1 - 2 cap PO Q4HR PRN PRN Reason: Migraine Headache Amitriptyline HCl [Elavil] 10 mg PO HS Discharge Medication List Cholecalciferol [Vitamin D3 (25 Mcg = 1000 Iu)] 1,000 unit PO DAILY 04/03/20 [History] Magnesium Oxide [Fish] 500 mg PO DAILY 04/03/20 [History] Vit C/E/Zn/Coppr/Lutein/Zeaxan [Preservision Areds 2 Softgel] 1 cap PO DAILY 04/03/20 [History] clonazePAM [KlonoPIN] 1 mg PO DAILY PRN 04/03/20 [History] hydrOXYzine pamoate [Vistaril] 25 mg PO HS 04/03/20 [History] Fish Oil/Dha/Epa [Fish Oil 1,200 mg Fish Oil] 1 tab PO DAILY 03/04/23 [History] Latanoprost [Latanoprost 0.005%] 1 drop BOTH EYES DAILY 03/04/23 [History] Multivit with Calcium,Iron,Min [Women's Multivitamin] 1 each PO HS 03/04/23 [History] Testosterone Pellet 1 unit SQ DIRECTED 03/04/23 [History] Thyroid,Pork [Camp Guard Thyroid] 60 mg PO DAILY 03/04/23 [History] Topiramate [Topamax] 50 mg PO BID 03/04/23 [History] Vortioxetine Hydrobromide [Trintellix] 10 mg PO DAILY 03/04/23 [History] lisinopriL [Zestril] 5 mg PO HS 03/04/23 [History] Amitriptyline HCl [Elavil] 10 mg PO HS 06/01/23 [History] Butalb/Acetaminophen/Caffeine [Fioricet 50-300-40 mg Capsule] 1 - 2 cap PO Q4HR PRN 06/01/23 [History] Liletta-Iud 1 insert VAGINAL DIRECTED 06/01/23 [History] lisinopriL [Zestril] 10 mg PO HS 06/01/23 [History] Follow up Appointment(s)/Referral(s): Latanya Marcos MD [STAFF PHYSICIAN] - 07/05/23 11:00 am Patient Instructions/Handouts: Gastritis (DC) Discharge Disposition: HOME SELF-CARE
== END 2023-06-08 08:32 | disposition home or self-care (01) ==
LOC: ORWHC2ENDO 07:08
PROVIDERS: ATTEND Surgery Plastic and Reconstructive Surgery
DX: K29.50 Unspecified chronic gastritis without bleeding (principal); K21.00 Gastro-esophageal reflux disease with esophagitis, without bleeding; K44.9 Diaphragmatic hernia without obstruction or gangrene; E66.01 Morbid (severe) obesity due to excess calories; E78.5 Hyperlipidemia, unspecified; E07.9 Disorder of thyroid, unspecified; G47.30 Sleep apnea, unspecified; I10 Essential (primary) hypertension; Z79.890 Hormone replacement therapy; Z90.49 Acquired absence of other specified parts of digestive tract; Z91.040 Latex allergy status; Z79.899 Other long term (current) drug therapy; Z88.8 Allergy status to other drugs, medicaments and biological substances; Z86.19 Personal history of other infectious and parasitic diseases
CPT/HCPCS: 81025; 88305; 43239; J2704; J2001

== ENCOUNTER → 2023-07-22 | Outpatient (CLI) | payer MEDICAID ==
[2023-07-22 16:20] LABS: Blood Urea Nitrogen 10.5 mg/dL (9.0-27.0); Carbon Dioxide 21.5 mmol/L (21.6-31.8); Chloride 110 mmol/L (96-109); Potassium 4.2 mmol/L (3.5-5.5); Sodium 142 mmol/L (135-145)
[2023-07-22 16:21] LABS: HCT 40.1 % (37.2-46.3); HGB 13.1 g/dL (12.0-15.0); MCH 28.2 pg (27.0-32.0); MCHC 32.7 g/dL (32.0-37.0); MCV 86.4 FL (80.0-97.0); Mean Platelet Volume 9.8 FL (9.5-12.2); NRBC Per 100 WBC 0 X 10*3/uL (0.00-0.01); Platelet Count 285 X 10*3/uL (140-440); RBC 4.64 X 10*6/uL (4.10-5.20); RDW 12.7 % (11.5-14.5); WBC 5.94 X 10*3/uL (4.50-10.00)
== END | disposition home or self-care (01) ==
LOC: LABWHC1 11:42
PROVIDERS: ATTEND Internal Medicine Interventional Cardiology
DX: Z01.812 Encounter for preprocedural laboratory examination (principal); R07.9 Chest pain, unspecified
CPT/HCPCS: 36415; 80051; 82565; 84520; 85027

== ENCOUNTER 2023-08-01 08:43 | Day surgery (SDC) | payer MEDICAID ==
[~2023-08-01 08:43] MED LIST changes: +ALPRAZolam 0.25 MG TAB PO PRN; +ALPRAZolam 0.5 MG TAB PO PRN; +ASPIRIN 325 MG TAB PO STA; -LACTATED RINGERS 1,000 ML IV SCH; -LIDOCAINE 1% (10MG/ML) FOR IV START INTRADERMA PRN; +NITROGLYCERIN SL TABS 0.4 MG TAB SUBLINGUAL PRN; +SODIUM CHLORIDE 0.9% 1,000 ML in EMPTY BAG 1 BAG IV SCH
[2023-08-01] MEDS ORDERED: SODIUM CHLORIDE 0.9% 1,000 ML IV ONE (08:51)
[2023-08-01 09:18] VITALS: RESP 16; TEMP 98.9
[2023-08-01] MEDS ORDERED: VERAPAMIL 2.5 MG/ML 2 ML AMP ONE (09:48)
[2023-08-01] MEDS ORDERED: VERAPAMIL SYRINGE (5 MG/10 ML) INTRAARTER ONE (10:00)
[2023-08-01] MEDS ORDERED: MIDAZOLAM 2 MG/2 ML VIAL IVP ONE (10:00)
[2023-08-01] MEDS ORDERED: LIDOCAINE 1% INJ 10MG/ML (30 ML VIAL-PF) SQ ONE (10:00)
[2023-08-01] MEDS ORDERED: HEPARIN SODIUM 1,000 UN/ML (10ML VL) IV ONE (10:05)
[2023-08-01] MEDS ORDERED: HYDROmorphone 0.5 MG/0.5 ML SYRINGE IVP ONE (10:06)
[2023-08-01] MEDS ORDERED: IOPAMIDOL-370 100ML BTL INJ ONE (10:12)
[2023-08-01] MEDS ORDERED: SODIUM CHLORIDE 0.9% 1,000 ML IV SCH (10:15)
[2023-08-01] MEDS ORDERED: RX INFO: IV CONTRAST WAS GIVEN 1 EACH MISC MISCELLANE PRN (10:15)
--- NOTE | 2023-08-01 10:18 | P.PCN ---
Date of Procedure: 08/01/23 Operative Findings: CARDIAC CATHETERIZATION PERFORMING PHYSICIAN: Dangelo Richardson MD, RPVI PROCEDURE PERFORMED: 1. Selective right and left coronary angiogram 2. Left heart catheterization 3. Ultrasound-guided access of the right radial artery INDICATION: Rule out severe CAD COMPLICATION: None APPROACH: Right radial artery LEVEL OF SEDATION: Moderate with a sedation length of 13 minutes PROCEDURE DESCRIPTION: After obtaining an informed consent, the patient was brought to cardiac laboratory chemist. Local anesthesia was performed using lidocaine subcutaneously. The right radial artery was cannulated using Seldinger technique, the guidewire passed easily, following that we advanced a 5-Irish sheath dilator assembly, the wire and dilator were removed and sheath was flushed. Following that, 2 mg of verapamil along with 5000 unit heparin were given. Selective right and left coronary angiogram using a 6-Irish JR4 and JL 3.5 catheters. Following that we did left heart catheterization using 6-Irish pigtail catheter. The procedure was completed there was no complication. SELECTIVE CORONARY ANGIOGRAM: The right coronary artery: Large caliber vessel and a dominant vessel and appeared to be angiographically normal Left main: Is angiographically normal The left circumflex: Large caliber vessel. Its angiographically normal. It gives rises into the first and second obtuse marginal branches and both appeared to be angiographically normal The left anterior descending artery: Is a large caliber vessel and seems to be normal gait gives rises into a diagonal branch which seems to be normal HEMODYNAMICS: The LVEDP was 9-10 mmHg was no significant gradient across aortic valve CONCLUSION: 1. Normal coronary angiogram 2. Normal left-sided filling pressure POSTPROCEDURE MANAGEMENT: Medical treatment
[2023-08-01] MEDS ORDERED: ACETAMINOPHEN TAB 500 MG TAB PO ONE (13:09)
[2023-08-01 13:58] VITALS: BP 152/67; PULSE 70
== END 2023-08-01 14:27 | disposition home or self-care (01) ==
LOC: CATHCVL 08:43
PROVIDERS: ATTEND Internal Medicine Interventional Cardiology
DX: R94.39 Abnormal result of other cardiovascular function study (principal); I10 Essential (primary) hypertension; Z79.899 Other long term (current) drug therapy
CPT/HCPCS: 93458; 76937; 99152; C1769; C1894; J2250; J2001; J1644; J1170; Q9967

== ENCOUNTER → 2024-02-15 | Outpatient (CLI) | payer BC ==
[2024-02-15 14:43] LABS: Basophils # (A) 0.03 X 10*3/uL (0.00-0.10); Basophils % (A) 0.5 %; Eosinophils # (A) 0.07 X 10*3/uL (0.04-0.35); Eosinophils % (A) 1.1 %; HGB 12.8 g/dL (12.0-15.0); Lymphocytes # (A) 2.16 X 10*3/uL (0.90-5.00); Lymphocytes % (A) 33.2 %; MCH 28.2 pg (27.0-32.0); MCHC 31.2 g/dL (32.0-37.0); MCV 90.3 FL (80.0-97.0); Mean Platelet Volume 10.3 FL (9.5-12.2); Monocytes # (A) 0.52 X 10*3/uL (0.20-1.00); NRBC Per 100 WBC 0 X 10*3/uL (0.00-0.01); Neutrophils % (A) 56.9 %; Platelet Count 267 X 10*3/uL (140-440); RBC 4.54 X 10*6/uL (4.10-5.20); RDW 12.9 % (11.5-14.5)
[2024-02-15 14:55] LABS: Erythrocyte Sedimentation Rate 3 mm/Hr (0-30)
[2024-02-15 15:37] LABS: ALT 29 U/L (8-44); AST 23 U/L (13-35); Albumin 4.5 g/dL (3.8-4.9); Alkaline Phosphatase 80 U/L (41-126); BUN/Creat Ratio 17.14 Ratio (12.00-20.00); Calcium 9.7 mg/dL (8.7-10.3); Carbon Dioxide 20.4 mmol/L (21.6-31.8); Chloride 107 mmol/L (96-109); Globulin 2.5 g/dL (1.6-3.3); Glucose 114 mg/dL (70-110); Sodium 140 mmol/L (135-145); Total Bilirubin 0.3 mg/dL (0.3-1.2)
== END | disposition home or self-care (01) ==
LOC: LABWHC1 10:02
PROVIDERS: ATTEND Internal Medicine Gastroenterology
DX: K52.9 Noninfective gastroenteritis and colitis, unspecified (principal); Z86.19 Personal history of other infectious and parasitic diseases
CPT/HCPCS: 36415; 80053; 83516; 85025; 85652; 86140

== ENCOUNTER → 2024-03-29 | Outpatient (CLI) | payer BC ==
--- NOTE | 2024-03-29 10:36 | US ---
EXAMINATION TYPE: US abdomen complete DATE OF EXAM: 03/29/2024 COMPARISON: NONE CLINICAL INDICATION: Female, 54 years old with history of R10.9 UNSPECIFIED ABDOMINAL PAIN; large hab itus, LUQ pain that comes and goes for years, cholecystectomy TECHNIQUE: Multiple sonographic images of the abdomen are obtained. FINDINGS: EXAM MEASUREMENTS: Liver Length: 21.5 cm Gallbladder Wall: Surgically absent CBD: 0.7 cm Spleen: 12.6 cm Right Kidney: 10.6 x 4.5 x 4.6 cm Left Kidney: 12.5 x 5.5 x 6.5 cm HEALTH/SAFETY JOB TITLES NOTES: habitus and bowel gas limits exam Pancreas: Obscured by bowel gas Liver: enlarged, difficult to penetrate Gallbladder: Surgically absent Evidence for sonographic Clark's sign: no CBD: wnl Spleen: upper limits of normal for size Right Kidney: wnl Left Kidney: wnl Upper IVC: wnl Abd Aorta: limited portions appear wnl IMPRESSION: 1. Hepatomegaly with findings involving the liver suggestive of underlying hepatic steatosis or hepat ocellular disease. 2. Postcholecystectomy changes.
== END | disposition home or self-care (01) ==
LOC: RADUSWWP 07:11
PROVIDERS: ATTEND Internal Medicine Gastroenterology
DX: R10.9 Unspecified abdominal pain (principal); R16.0 Hepatomegaly, not elsewhere classified
CPT/HCPCS: 76700